=== PATIENT | female | born 1965 ===

== ENCOUNTER 2021-01-05 09:02 | Outpatient (REF) | payer OTHER, SELFPAY ==
[2021-01-05 11:22] LABS: MANUAL DIFF FLAG NO
[2021-01-05 11:35] LABS: Basophils Percent Auto 0.5 % (0-2); Eosinophils Absolute Auto 0.1 X10*3/uL (0.0-0.4); Eosinophils Percent Auto 1.5 % (0-4); Hematocrit 36.6 % (37-47); Hemoglobin 11.6 g/dl (12.0-16.0); Imm Gran Abs Auto 0.01 X10*3/uL (0.00-0.03); Imm Gran Pct Auto 0.2 % (0.0-0.4); Lymphocytes Absolute Auto 3.1 X10*3/uL (1.2-4.9); Lymphocytes Percent Auto 48.3 % (20-40); Mean Corpuscular HGB Conc 31.7 g/dl (31.0-35.0); Mean Corpuscular Hemoglobin 26.6 pg (27.0-33.0); Mean Corpuscular Volume 83.9 fL (80-98); Mean Platelet Volume 12.1 fL (9.4-12.3); Monocytes Absolute Auto 0.5 X10*3/uL (0.1-1.2); Monocytes Percent Auto 7.7 % (2-11); Neutrophils Absolute Auto 2.7 X10*3/uL (2.0-8.3); Neutrophils Percent Auto 41.8 % (45-73); Platelet Count 346 X10*3/uL (160-400); Red Blood Count 4.36 X10*6/uL (4.20-5.50); Red Cell Distribution Width 13.8 % (11.0-16.0); White Blood Count 6.5 X10*3/uL (4.8-10.8)
[2021-01-05 11:42] LABS: Estimated Average Glucose 108 mg/dL; Hemoglobin A1c % 5.4 %
[2021-01-05 11:51] LABS: Creatinine Urine 52.56 mg/dL
[2021-01-05 12:10] LABS: Alanine Aminotransferase 13 U/L (0-31); Albumin Level 4.4 g/dL (3.5-5.0); Alkaline Phosphatase 77 U/L (39-117); Anion Gap 11 (12-20); Aspartate Amino Transferase 17 U/L (5-31); Bilirubin Total 0.3 mg/dL (0.0-1.0); Blood Urea Nitrogen 14 mg/dL (9-16); Calcium 9.2 mg/dL (8.4-10.2); Carbon Dioxide 23 mmol/L (22-29); Chloride 108 mmol/L (96-108); Estimated Glomerular Filt Rate > 60; Glucose Random 104 mg/dL (60-115); Potassium 4.1 mmol/L (3.3-5.1); Sodium 138 mmol/L (135-145); Total Protein 7.7 g/dL (6.5-8.0)
[2021-01-06 16:32] LABS: LDL Cholesterol Direct 129 mg/dL (<100)
== END 2021-01-05 09:03 | disposition home or self-care (01) ==
LOC: HO.HMGCLDS 09:02
PROVIDERS: PCP Internal Medicine; Visit Provider Internal Medicine
DX: E11.9 Type 2 diabetes mellitus without complications (principal); I10 Essential (primary) hypertension
CPT/HCPCS: 36415; 80053; 82043; 83036; 83721; 85025

== ENCOUNTER 2021-01-16 08:28 | Outpatient (REF) | payer OTHER, SELFPAY ==
[2021-01-18 23:32] LABS: TS Negative Control Passed; TS Panel A 0; TS Panel B 0; TS Positive Control Passed; TSpotTB Negative (SeeBelow)
== END 2021-01-16 08:29 | disposition home or self-care (01) ==
LOC: HO.HMGCLDS 08:28
PROVIDERS: PCP Internal Medicine; Visit Provider Internal Medicine
DX: Z11.1 Encounter for screening for respiratory tuberculosis (principal)
CPT/HCPCS: 36415; 86481

== ENCOUNTER 2021-06-07 11:31 | Outpatient (REF) | payer OTHER, SELFPAY ==
[2021-06-07 13:38] LABS: Hematocrit 37.7 % (37.0-47.0); Hemoglobin 11.8 g/dl (12.0-16.0); Mean Corpuscular HGB Conc 31.3 g/dl (31.0-35.0); Mean Corpuscular Hemoglobin 26.3 pg (27.0-33.0); Mean Corpuscular Volume 84.2 fL (80.0-98.0); Mean Platelet Volume 13.1 fL (9.4-12.3); Platelet Count 260 X10*3/uL (160-400); Red Blood Count 4.48 X10*6/uL (4.20-5.50); Red Cell Distribution Width 14.7 % (11.0-16.0); White Blood Count 6.5 X10*3/uL (4.8-10.8)
== END 2021-06-07 11:32 | disposition home or self-care (01) ==
LOC: HO.LAB 11:31
PROVIDERS: PCP Internal Medicine; Referring Provider Internal Medicine; Visit Provider Internal Medicine Cardiovascular Disease
DX: R06.02 Shortness of breath (principal); R07.9 Chest pain, unspecified; Z79.899 Other long term (current) drug therapy
CPT/HCPCS: 36415; 85027; 93005

== ENCOUNTER → 2021-08-09 09:36 | Outpatient (REF) | payer OTHER, SELFPAY ==
--- NOTE | 2021-08-09 09:44 | CA_ITS ---
Transthoracic Echocardiogram Patient (Last, First, Middle): Chrissy Abbott, Gender: Female Date of : 1965 Age: 55 Procedure Date: 08/09/2021 Procedure Type: Transthoracic Echocardiogram Location: OP Height: 157.48 cm Weight: 64.86 kg BSA: 1.66 m2 Heart Rate: bpm BP: 132 / 68 mmHg Program Writer: TANIA Referring MD: Carlos Lazaro MD Cold Working Inspector: Ubaldo Russell MD Symptoms: R06.02 SOB Study Quality: Good ECG Rhythm: Sinus Conclusions: - Essentially normal study Findings Left Ventricle Normal left ventricular size, thickness, and systolic function. The visually estimated ejection fraction is between 60-65%. Spectral Doppler is indicative of a normal filling pattern. Peak GLS is - 17.5%. Right Ventricle Normal right ventricular cavity size and systolic function. Atria Both atria are normal in size. Interatrial shunt cannot be excluded. Aortic Valve The aortic valve structure and function is likely normal. There is no aortic valve stenosis. There is no aortic valve regurgitation. Mitral Valve Normal mitral valve structure and function. There is trace mitral valve regurgitation. There is no mitral valve stenosis. Pulmonic Valve The pulmonic valve was not well visualized. Tricuspid Valve Likely normal tricuspid valve structure and function. There is trace tricuspid valve regurgitation. The right ventricular systolic pressure is normal. The right ventricular systolic pressure is 18 mmHg. Normal right atrial pressure. There is no evidence of pulmonary hypertension. Great Vessels All visible segments of the aorta are normal in size. The pulmonary artery was not well visualized. Venous The inferior vena cava is normal in size and collapses greater than 50% with inspiration. Pericardium/Pleural There is no evidence of pericardial effusion. Prior Study Comparison No prior study available for comparison. Measurements 2D Linear Measurements IVSd: 1.19 0.6-0.9/0.6-1.0 cm LVIDd: 3.84 3.9-5.3/4.2-5.9 cm LVIDd Index: 2.31 2.4-3.2/2.2-3.1 cm/m2 LVIDs: 2.58 2.0-3.6 cm LVPWd: 1.20 0.7-1.1 cm LA Diam: 3.70 2.7-3.8/3.0-4.0 cm LAIDs Index: 2.23 1.5-2.3 cm/m2 LV Mass: 192.59 67-162/88-224 g LV Mass Index: 116.02 43-95/49-115 g/m2 LVOT Diam: 1.90 3.0+(-)1.3 cm 2D Systolic Function EF 4C: 61.80 >55% EF 2C: 61.80 >55% EF BiP: 61.00 >55% Mitral Valve MV Pk E: 0.79 MV PK A: 0.64 MV Decel Time: 190.00 E/A: 1.20 E'Lateral: 8.27 E'Medial: 6.20 E/E' Med: 12.70 E/E' Lat: 9.50 PHT: 56.00 MVA PHT: 3.93 Decel [place]: 4.15 Aortic Valve AoV Pk Elvin: 1.24 AoV Mn Elvin: 0.82 AoV VTI: 0.29 AoV Pk Grad: 6.00 Aov Mn Grad: 3.00 BEATRICE Cont.VTI: 2.10 LVOT LVOT Pk Elvin: 0.90 LVOT Mn Elvin: 0.58 LVOT VTI: 0.21 LVOT Pk Grad: 3.00 LVOT Mn Grad: 2.00 LVOT Diam: 1.90 LVOT Area: 2.84 Diastolic Function MV Pk E: 0.79 MV Pk A: 0.64 E/A: 1.20 E'Medial: 6.20 E/E' Med: 12.70 E' Laterial: 8.27 E/E' Lat: 9.50 Right Ventricle TAPSE (mm): 22.40 TVS' Elvin: 9.14 Tricuspid Valve TR Pk Elvin: 1.94 TR Pk Grad: 15.00 RA Press: 3.00 RVSP: 18.00 Great Vessels Aorta Sinus of Valsalva: 2.92 2.0-3.[address] [place]: 2.05 1.7-3.4 cm Ao Asc: 3.00 2.1-3.4 cm Ao Arch: 3.20 Updated in Other Vendor System with Status of Final Ubaldo Russell MD electronically signed on 08/10/2021 3:56:38 PM with status of Final
--- NOTE | 2021-08-09 09:45 | CA_ITS ---
Acquisition Time: 2021-08-09 10:29:36 Total Exercise Time: 00:05:30 Test Indications: CP, SOB Medications: SEE CHART Protocol: SANDRO Max HR: 157 BPM 94% of Pred: 167 BPM Max BP: 230/086 mmHG Max Work Load: 7.0 METS Exercise strress test with exercise 5 min 30 sec of Sandro protocol, achieving 94% MPHR, 7 METs, without anginal symptoms, without arrythmia, with BP 164/84 at baseline and gume to 230/86 with exercise, without EKG changes meeting criteria for ischemia. Starting at 5 min recovery there is slight downsloping of ST inferiorly and V3-V6 that improves by 8 min recovery. In recovery her BP returned to baseline. She did take her losartan/ HCTZ last evening. Test reviewed with Dr Russell. Referred By: Carlos Lazaro Overread By: ELVI ARCE
== END ==
LOC: HO.CARD 09:36
PROVIDERS: PCP Internal Medicine; Visit Provider Internal Medicine Cardiovascular Disease
DX: R07.9 Chest pain, unspecified (principal); R06.02 Shortness of breath
CPT/HCPCS: 93017; 93306; 93356

== ENCOUNTER → 2021-08-23 14:11 | Outpatient (BNVA) | payer OTHER, SELFPAY | PROVIDERS: PCP Internal Medicine; Referring Provider Internal Medicine; Visit Provider Internal Medicine Cardiovascular Disease | DX: I10 Essential (primary) hypertension (principal) ==

== ENCOUNTER 2021-10-26 09:30 | Outpatient (REF) | payer OTHER, SELFPAY ==
[2021-10-26 11:41] LABS: Alanine Aminotransferase 49 U/L (0-31); Albumin Level 4.6 g/dL (3.5-5.0); Alkaline Phosphatase 76 U/L (39-117); Anion Gap 12 (12-20); Aspartate Amino Transferase 30 U/L (5-31); Bilirubin Total 0.2 mg/dL (0.0-1.0); Blood Urea Nitrogen 19 mg/dL (9-16); Calcium 8.8 mg/dL (8.4-10.2); Carbon Dioxide 26 mmol/L (22-29); Chloride 103 mmol/L (96-108); Estimated Average Glucose 131 mg/dL; Estimated Glomerular Filt Rate > 60; Glucose Random 159 mg/dL (60-115); Hemoglobin A1c % 6.2 %; Potassium 3.6 mmol/L (3.3-5.1); Sodium 137 mmol/L (135-145); Total Protein 8.1 g/dL (6.5-8.0)
[2021-10-28 05:42] LABS: LDL Cholesterol Direct 131 mg/dL (<100)
== END 2021-10-26 09:31 | disposition home or self-care (01) ==
LOC: HO.HMGCLDS 09:30
PROVIDERS: Visit Provider Internal Medicine
DX: E11.9 Type 2 diabetes mellitus without complications (principal); I10 Essential (primary) hypertension
CPT/HCPCS: 36415; 80053; 83036; 83721

== ENCOUNTER 2022-05-07 12:17 | Outpatient (REF) | payer OTHER, SELFPAY ==
[2022-05-07 14:14] LABS: Alanine Aminotransferase 19 U/L (0-31); Albumin Level 4.4 g/dL (3.5-5.0); Alkaline Phosphatase 80 U/L (39-117); Anion Gap 14 (12-20); Aspartate Amino Transferase 19 U/L (5-31); Bilirubin Total 0.4 mg/dL (0.0-1.0); Blood Urea Nitrogen 11 mg/dL (9-16); Calcium 9.2 mg/dL (8.4-10.2); Carbon Dioxide 27 mmol/L (22-29); Chloride 104 mmol/L (96-108); Cholesterol 170 mg/dL; Estimated Average Glucose 151 mg/dL; Estimated Glomerular Filt Rate > 60; Glucose Fasting 119 mg/dL (60-99); HDL Cholesterol 43 mg/dL; Hemoglobin A1c % 6.9 %; LDL Cholesterol Calculated 119 mg/dl; Potassium 3.9 mmol/L (3.3-5.1); Sodium 141 mmol/L (135-145); Total Protein 7.6 g/dL (6.5-8.0); Triglycerides 44 mg/dL
== END 2022-05-07 12:18 | disposition home or self-care (01) ==
LOC: HO.HMGCLDS 12:17
PROVIDERS: PCP Internal Medicine; Visit Provider Internal Medicine
DX: I10 Essential (primary) hypertension (principal); E11.9 Type 2 diabetes mellitus without complications
CPT/HCPCS: 36415; 80053; 80061; 83036

== ENCOUNTER 2022-08-09 08:38 | Outpatient (REF) | payer OTHER, SELFPAY ==
--- NOTE | ~2022-08-09 | XR_ITS ---
EXAMINATION: XR FOOT, LEFT CLINICAL INFORMATION: Contusion left foot. COMPARISON: None available. TECHNIQUE: AP, lateral, and oblique views of the left foot. FINDINGS: There is small retrocalcaneal and a tiny calcaneal enthesophyte. The ankle mortise and subtalar joints are normal. No acute fracture, dislocation subluxation seen. The soft tissues are normal. XR/XR foot LT min 3V IMPRESSION: 1. No acute fracture or dislocation. 2. Small retrocalcaneal and a tiny calcaneal heel enthesophyte.
== END 2022-08-09 08:39 | disposition home or self-care (01) ==
LOC: HO.HMGCX 08:38
PROVIDERS: PCP Internal Medicine; Visit Provider Internal Medicine
DX: S90.32XA Contusion of left foot, initial encounter (principal)
CPT/HCPCS: 73630

== ENCOUNTER 2022-11-01 14:33 | Outpatient (AMB) | payer OTHER, SELFPAY ==
--- NOTE | 2022-11-01 14:39 | MHC.PC.OV ---
Vital Signs 11/01/22 14:40 Height 5 ft 2 in Weight 144 lb BMI 26.3 BP 152/92 H Blood Pressure Location Rt brachial Position Sitting Pulse 60 Pulse Source Pulse Oximeter Pulse Oximetry (%) 99 Oxygen Delivery Method Room Air Intake Visit Reasons: PE Allergies codeine Allergy (Unknown, Verified 11/01/22 14:45) hives Codeine Sulfate Allergy (Unknown, Uncoded 11/01/22 14:45) hives, flu vaccine Adverse Reaction (Uncoded 11/01/22 14:45) upset stomach Medication List - Last Reconciled 11/01/22 by Andreea Jackson MD losartan-hydrochlorothiazide 50-12.5 mg 1 tab PO DAILY 90 days Tobacco use date assessed: 11/01/22 Dental Screening Dental Screen Date: 11/01/22 Did you have a dental visit in the last 12 months?: Yes Did you have a dental problem in the last 6 months where you did not have access to dental care?: No Was dental information given to patient?: Patient has dentist HPI PE HPI Details Physical exam appointment Patient is 56-year-old female blood pressure is still elevated patient is taking 1 and half tablet of losartan hydrochlorothiazide 50-12.5 mg I am changing the dose to 1 tablet b.i.d.. Patient will continue to monitor her blood pressure at home and give me a call in 7 days with readings Due for mammogram Due for Pap smear Due for colonoscopy Patient is diet controlled diabetic last hemoglobin A1c was 6.9 in May Due for labs today She has developed tenia corporis I have sent ketoconazole cream that she is to apply on right foot at bedtime and then wear cotton sock. [facility] Surgical History No pertinent past surgical history Family History Mother Hypertension Father No problems noted. Social History Housing: House Alcohol intake: never Patient Tobacco Use Status: Never used Tobacco e-Cigarette/Vaping Use: Never Used Second Hand Smoke Exposure: No Current occupational status: employed Cognitive needs: No Hearing needs: No Vision needs: Yes Questionnaire PHQ-9 Over the last 2 weeks, how often have you been bothered by any of the following problems? 1. Little interest or pleasure in doing things: not at all 2. Feeling down, depressed, or hopeless: not at all 3. Trouble falling or staying asleep, or sleeping too much: not at all 4. Feeling tired or having little energy: not at all 5. Poor appetite or overeating: not at all 6. Feeling bad about yourself - or that you are a failure or have let yourself or your family down: not at all 7. Trouble concentrating on things, such as reading the newspaper or watching television: not at all 8. Moving or speaking so slowly that other people could have noticed. Or the opposite - being so fidgety or restless that you have been moving around a lot more than usual: not at all 9. Thoughts that you would be better off or of hurting yourself in some way: not at all Total score: 0 Depression Screening Interpretation: Negative [id number] - PHQ-9 Billing: Yes Source: Developed by Drs. Silvio Schneider, Carmel Delgadillo, Andrea Neal and colleagues, with an educational lynda from [employer]. Thrive Questionnaire Date Thrive assessed: 11/01/22 I am a: Patient What is your living situation today?: I have a steady place to live Within the past 12 months, did the food you bought not last and you didn't have the money to get more?: Never true Within the past 12 months, did you worry whether your food would run out before you got money to buy more?: Never true Do you have trouble paying for medicines?: No Do you have trouble getting transportation to medical appointments?: No Do you have trouble paying your heating and electricity bill?: No Do you have trouble taking care of your child, family member or friend?: No Do you have trouble with day-to-day activities such as bathing, preparing meals, shopping, managing finances, etc.?: No Are you currently unemployed and looking for a job?: No Are you interested in more education?: No NORBERTO-7 AMB Questionnaire NORBERTO-7 Date NORBERTO - 7 assessed: 11/01/22 Feeling nervous, anxious, or on edge: 0 = Not at all Not being able to stop or control worryin = Not at all Worrying too much about different things: 0 = Not at all Trouble relaxin = Not at all Being so restless that it is hard to sit still: 0 = Not at all Becoming easily annoyed or irritable: 0 = Not at all Feeling afraid as if something awful might happen: 0 = Not at all Total NORBERTO-7 score (0-4 normal; 5-9 mild; 10-14 moderate; 15-21 severe): 0 Source: Developed by Drs. Silvio Schneider, Carmel Delgadillo, Andrea Neal and colleagues, with an educational lynda from [employer]. Review of Systems Const Denies chills, Denies fever(s) and Denies headache(s) Eyes Denies blurry vision ENT Denies headache(s), Denies nasal discharge, Denies nasal obstruction, Denies odynophagia and Denies sinus pain Card Denies chest pain at rest and Denies chest pain with activity Resp Denies cough and Denies hemoptysis GI Denies diarrhea, Denies odynophagia, Denies vomiting and Denies hematemesis Reports as per HPI Musc Denies abnormal gait Skin/Breast Reports as per HPI Neuro Denies Neuro-related abnormal movements, Denies Abnormal speech present, Denies abnormal gait, Denies headache(s) and Denies Sensory deficit (Neuro) Psych Denies mood swings and Denies paranoia Endo Reports as per HPI Heber/Lymph Reports as per HPI Aller/Immun Reports as per HPI Physical exam (Primary Care) Vital Signs: Last Vital Signs Pulse 60 11/01/22 14:40 BP 152/92 H 11/01/22 14:40 Pulse Ox 99 11/01/22 14:40 Oxygen Delivery Method Room Air 11/01/22 14:40 BMI result Body Mass Index 26.3 Tobacco/Smoking Status: Tobacco use Status Tobacco use date assessed 11/01/22 11/01/22 14:45 Patient Tobacco Use Status Never used Tobacco 11/01/22 14:40 e-Cigarette/Vaping Use Never Used 11/01/22 14:40 PHQ-9: PHQ-9 Score PHQ-9: Total score 0 11/01/22 15:10 Depression Screening Interpretation: Negative Thrive Assessment: Date of Thrive Assessment Date Thrive assessed 11/01/22 11/01/22 14:45 Const General: cooperative, comfortable and no acute distress Orientation/consciousness: patient oriented x3 HENMT Head: Yes normocephalic and Yes atraumatic Eyes General: appearance normal, both eyes and all related structures Pupils: Equal, round and reactive pupils present EOM: EOMs intact bilaterally Neck Neck: Yes supple and No lymphadenopathy Thyroid: Thyroid normal Lymphatic: no lymphadenopathy noted Chest Breast/axilla palpation: normal palpation of the breasts Resp Effort & Inspection: normal respiratory effort and able to speak in complete sentences Auscultation: clear to auscultation bilaterally Cardio Heart sounds: S1 normal heart sound present and S2 normal heart sound present GI Palpation (GI): Soft to palpation and nontender Auscultation: normal bowel sounds General: Yes no CVA tenderness Back/Spine/Pelvis Back: no CVA tenderness Skin General skin exam: elasticity normal and turgor normal Neuro General: patient oriented x3 and gait normal Cranial nerves: Yes Equal, round and reactive pupils present Speech: No Abnormal speech present Sensory Exam: No Sensory deficit (Neuro) Coordination: tandem gait normal and Romberg test negative Extrem General: Yes normal exam except as noted and No edema Assessment and Plan Assessment & Plan (1) Encounter for general adult medical examination with abnormal findings: Code(s): Z00.01 - Encounter for general adult medical examination with abnormal findings (2) Uncontrolled hypertension: Code(s): I10 - Essential (primary) hypertension (3) Colon cancer screening: Code(s): Z12.11 - Encounter for screening for malignant neoplasm of colon (4) Tinea pedis of right foot: Code(s): B35.3 - Tinea pedis Plan Physical exam appointment Patient is 56-year-old female blood pressure is still elevated patient is taking 1 and half tablet of losartan hydrochlorothiazide 50-12.5 mg I am changing the dose to 1 tablet b.i.d.. Patient will continue to monitor her blood pressure at home and give me a call in 7 days with readings Due for mammogram Due for Pap smear Due for colonoscopy Patient is diet controlled diabetic last hemoglobin A1c was 6.9 in May Due for labs today She has developed tenia pedis I have sent ketoconazole cream that she is to apply on right foot at bedtime and then wear cotton sock. Orders: Orders Hemoglobin A1c Today I10 - Essential (primary) hypertension, Z00.01 - Encounter for general adult medical examination with abnormal findings Complete Blood Count Auto Diff Today I10 - Essential (primary) hypertension, Z00.01 - Encounter for general adult medical examination with abnormal findings Comprehensive [place]. Panel Fast Today I10 - Essential (primary) hypertension, Z00.01 - Encounter for general adult medical examination with abnormal findings Lipid Panel Today I10 - Essential (primary) hypertension, Z00.01 - Encounter for general adult medical examination with abnormal findings MM tomosynthesis screening BI Today Z12.31 - Encounter for screening mammogram for malignant neoplasm of breast Referrals [facility] Referral Z01.419 - Encounter for gynecological examination (general) (routine) without abnormal findings Gastroenterology Referral Z12.11 - Encounter for screening for malignant neoplasm of colon Medications: New ketoconazole 2% 1 appl topical DAILY 60 grams 1RF Foot rash Coding Level of Care Code Est Pt Prev Care 40-64y(29817) Diagnoses Encounter for general adult medical examination with abnormal findings Z00.01 Uncontrolled hypertension I10 Colon cancer screening Z12.11 Tinea pedis of right foot B35.3
[2022-11-01 14:40] VITALS: BP 152/92; PULSE 60; O2SAT 99; BMI 26.3
== END 2022-11-01 15:46 | disposition home or self-care (01) ==
PROVIDERS: Visit Provider Internal Medicine
DX: Z00.01 Encounter for general adult medical examination with abnormal findings (principal); I10 Essential (primary) hypertension; Z12.11 Encounter for screening for malignant neoplasm of colon; B35.3 Tinea pedis
CPT/HCPCS: 99396

== ENCOUNTER 2022-11-01 15:15 | Outpatient (REF) | payer OTHER, SELFPAY ==
[2022-11-01 16:09] LABS: MANUAL DIFF FLAG NO
[2022-11-01 16:29] LABS: Basophils Percent Auto 0.6 % (0-2); Eosinophils Absolute Auto 0.1 X10*3/uL (0.0-0.4); Eosinophils Percent Auto 1.3 % (0-4); Hematocrit 39.6 % (37.0-47.0); Hemoglobin 12.9 g/dl (12.0-16.0); Imm Gran Abs Auto 0.01 X10*3/uL (0.00-0.03); Imm Gran Pct Auto 0.2 % (0.0-0.4); Lymphocytes Percent Auto 47.7 % (20-40); Mean Corpuscular HGB Conc 32.6 g/dl (31.0-35.0); Mean Corpuscular Hemoglobin 26.9 pg (27.0-33.0); Mean Corpuscular Volume 82.5 fL (80.0-98.0); Mean Platelet Volume 11.9 fL (9.4-12.3); Monocytes Absolute Auto 0.5 X10*3/uL (0.1-1.2); Monocytes Percent Auto 7.4 % (2-11); Neutrophils Absolute Auto 2.7 x10*3/uL (2.0-8.3); Neutrophils Percent Auto 42.8 % (45-73); Platelet Count 294 X10*3/uL (160-400); Red Cell Distribution Width 13.4 % (11.0-16.0); White Blood Count 6.2 X10*3/uL (4.8-10.8)
[2022-11-01 16:56] LABS: Estimated Average Glucose 160 mg/dL; Hemoglobin A1c % 7.2 %
[2022-11-01 17:34] LABS: Alanine Aminotransferase 30 U/L (0-31); Albumin Level 4.5 g/dL (3.5-5.0); Alkaline Phosphatase 76 U/L (39-117); Anion Gap 15 (12-20); Aspartate Amino Transferase 20 U/L (5-31); Bilirubin Total 0.3 mg/dL (0.0-1.0); Blood Urea Nitrogen 14 mg/dL (9-16); Calcium 9.3 mg/dL (8.4-10.2); Carbon Dioxide 24 mmol/L (22-29); Chloride 105 mmol/L (96-108); Cholesterol 204 mg/dL; Estimated Glomerular Filt Rate > 60; Glucose Fasting 141 mg/dL (60-99); HDL Cholesterol 49 mg/dL; LDL Cholesterol Calculated 146 mg/dl; Potassium 3.6 mmol/L (3.3-5.1); Sodium 140 mmol/L (135-145); Total Protein 8.2 g/dL (6.5-8.0); Triglycerides 48 mg/dL
== END 2022-11-01 15:16 | disposition home or self-care (01) ==
LOC: HO.HMGCLDS 15:15
PROVIDERS: PCP Internal Medicine; Visit Provider Internal Medicine
DX: Z00.01 Encounter for general adult medical examination with abnormal findings (principal); I10 Essential (primary) hypertension
CPT/HCPCS: 36415; 80053; 80061; 83036; 85025

== ENCOUNTER 2022-11-19 08:45 | Outpatient (AMB) | payer OTHER, SELFPAY ==
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
[2022-11-19 09:03] VITALS: BP 142/88; PULSE 55; O2SAT 97; BMI 26.2
== END 2022-11-19 11:03 | disposition home or self-care (01) ==
PROVIDERS: PCP Internal Medicine; Visit Provider Internal Medicine
DX: S13.4XXA Sprain of ligaments of cervical spine, initial encounter (principal); S06.0XAA Concussion with loss of consciousness status unknown, initial encounter; R41.89 Other symptoms and signs involving cognitive functions and awareness; Z04.3 Encounter for examination and observation following other accident; V89.2XXA Person injured in unspecified motor-vehicle accident, traffic, initial encounter
CPT/HCPCS: 99214

== ENCOUNTER 2022-12-04 07:43 | Outpatient (AMB) | payer OTHER, SELFPAY ==
--- NOTE | 2022-12-04 07:53 | MHC.OFFVIS ---
Intake Vital Signs 12/04/22 07:55 Height 5 ft 2 in Weight 147 lb BMI 26.9 BP 148/73 H Blood Pressure Location Lt brachial Position Sitting Pulse 69 Intake Visit Reasons: Colonoscopy Screening Intake Note: Patient new consult for 1st pre Colonoscopy screening. Patient cc: constipation on and off, denies any other GI issues. 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 Accompanied by: Self / Same As Patient Allergies codeine Allergy (Unknown, Verified 12/04/22 07:52) hives Codeine Sulfate Allergy (Unknown, Uncoded 11/01/22 14:45) hives, flu vaccine Adverse Reaction (Uncoded 11/01/22 14:45) upset stomach Medication List - Last Reconciled 12/04/22 by Cassandar Dueñas PA-C ibuprofen 600 mg PO Q8H PRN ketoconazole 2% 1 appl topical DAILY losartan-hydrochlorothiazide 50-12.5 mg 1 tab PO DAILY 90 days HPI HPI Comments History of Present Illness Details A 57-year-old female referred for index screening colonoscopy-she has intermittent constipation however has able to manage- hemorrhoids for years- no issues appetite is good- No respiratory or cardiac issues 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 Social History Housing: House Alcohol intake: never Patient Tobacco Use Status: Never used Tobacco e-Cigarette/Vaping Use: Never Used Second Hand Smoke Exposure: No Current occupational status: employed Cognitive needs: No Hearing needs: No Vision needs: Yes Review of Systems Const All systems reviewed & are unremarkable except as noted in HPI and below Card Denies chest pain and Denies dyspnea Resp Denies dyspnea GI Denies abdominal pain, Denies change in bowel habits, Denies nausea and Denies vomiting Psych Denies anxiety Physical Exam Vital Signs: Last Vital Signs Pulse 69 12/04/22 07:55 BP 148/73 H 12/04/22 07:55 BMI result Body Mass Index 26.9 Const General: cooperative, healthy appearing, comfortable, no acute distress and well groomed Orientation/consciousness: patient oriented x3 Limitations: no limitations Eyes Sclerae: sclerae normal Resp Effort & Inspection: normal respiratory effort and able to speak in complete sentences Auscultation: clear to auscultation bilaterally, no rales, no rhonchi and no wheezes Cardio Rate: regular rate Rhythm: regular rhythm Heart sounds: S1 normal heart sound present and S2 normal heart sound present GI Palpation (GI): Soft to palpation and nontender Auscultation: normal bowel sounds Skin General skin exam: no rashes or lesions noted Neuro General: patient oriented x3 Extrem General: Yes full ROM Psych Appearance: grossly normal and well kempt Mental Status: mental status grossly normal Speech and movement: Normal speech and movement present and Clear speech present Affect: normal affect Attitude: cooperative Thought process: Normal thought process present Thought content: Normal thought content present Insight: Good insight present (Psych) Judgement: Good judgement present (Psych) Assessment & Plan Assessment & Plan (1) Colon cancer screening: Comment: No GI complaints, no family history GI cancer Code(s): Z12.11 - Encounter for screening for malignant neoplasm of colon Plan: index screen Plan Index screen- MG pre- FEMALE pls- TY Orders: Orders Colonoscopy - GI Use Only Today Z12.11 - Encounter for screening for malignant neoplasm of colon Medications: New bisacodyl (Dulcolax (bisacodyl)) Take 4 tablets by mouth at 12:00pm the day before your procedure. 20 mg (4 x 5 mg) PO ONCE 4 tabs 0RF colonoscopy prep 1 day Z12.11 - Encounter for screening for malignant neoplasm of colon polyethylene glycol 3350 (Miralax) Take as directed by mouth the day before your procedure. 238 grams PO ONCE PRN 238 grams 0RF laxative effect 1 day Patient Instructions: A very pleasant 57 y/o female refrred for index screening- Discussed procedure, rare risks, need for escorted due to anesthesia Index screening colonoscopy-MiraLax Gatorade split prep Call with any questions or concerns Coding Level of Care Code New Pt Level 3 (71351) Diagnoses Colon cancer screening Z12.11 Time Spent (min) 30
[2022-12-04 07:55] VITALS: BP 148/73; PULSE 69; BMI 26.9
== END 2022-12-04 09:16 | disposition home or self-care (01) ==
PROVIDERS: PCP Internal Medicine; Visit Provider Physician Assistant
DX: Z12.11 Encounter for screening for malignant neoplasm of colon (principal); Z01.818 Encounter for other preprocedural examination
CPT/HCPCS: 99203

== ENCOUNTER → 2022-12-04 07:43 | Outpatient (BNVA) | payer OTHER, SELFPAY | PROVIDERS: PCP Internal Medicine; Visit Provider Physician Assistant ==

== ENCOUNTER 2022-12-18 08:06 | Outpatient (AMB) | payer OTHER, SELFPAY ==
[2022-12-18 08:09] VITALS: BP 140/88; PULSE 76; O2SAT 99; BMI 26.3
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
== END 2022-12-18 08:59 | disposition home or self-care (01) ==
PROVIDERS: PCP Internal Medicine; Visit Provider Internal Medicine
DX: S13.4XXD Sprain of ligaments of cervical spine, subsequent encounter (principal); S06.0X0D Concussion without loss of consciousness, subsequent encounter; R41.89 Other symptoms and signs involving cognitive functions and awareness; V89.2XXD Person injured in unspecified motor-vehicle accident, traffic, subsequent encounter; Z04.3 Encounter for examination and observation following other accident
CPT/HCPCS: 99214

== ENCOUNTER 2022-12-20 07:47 | Outpatient (REF) | payer OTHER, SELFPAY | END 2022-12-20 07:48 | disposition home or self-care (01) | LOC: HO.MAMMO 07:47 | PROVIDERS: PCP Internal Medicine; Visit Provider Internal Medicine | DX: Z12.31 Encounter for screening mammogram for malignant neoplasm of breast (principal) | CPT/HCPCS: 77063; 77067 ==

== ENCOUNTER → 2022-12-20 08:15 | Outpatient (BNV) | payer OTHER, SELFPAY | PROVIDERS: PCP Internal Medicine; Visit Provider Radiology Diagnostic Radiology | DX: Z12.31 Encounter for screening mammogram for malignant neoplasm of breast (principal) | CPT/HCPCS: 77063; 77067 ==

== ENCOUNTER 2023-01-14 08:00 | Outpatient (RCR) | payer OTHER, SELFPAY ==
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
== END 2023-01-16 09:17 | disposition home or self-care (01) ==
LOC: HO.PTCHIC 08:00
PROVIDERS: PCP Internal Medicine; Visit Provider Internal Medicine
DX: S13.4XXA Sprain of ligaments of cervical spine, initial encounter (principal); M54.50 Low back pain, unspecified
CPT/HCPCS: 97110; 97161

== ENCOUNTER 2023-01-24 14:32 | Outpatient (AMB) | payer OTHER, SELFPAY ==
[2023-01-24 14:46] VITALS: BP 126/70; PULSE 85; O2SAT 98; BMI 26.8
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
== END 2023-01-24 16:06 | disposition home or self-care (01) ==
PROVIDERS: PCP Internal Medicine; Visit Provider Internal Medicine
DX: M54.2 Cervicalgia (principal); V89.2XXA Person injured in unspecified motor-vehicle accident, traffic, initial encounter
CPT/HCPCS: 99213

== ENCOUNTER 2023-05-29 06:57 | Day surgery (SDC) | payer OTHER, SELFPAY ==
[2023-05-27 13:15] VITALS: BMI 26.9
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
--- NOTE | 2023-05-29 08:25 | MHC.SHP ---
Pre-Procedural Eval Section A - 24 Hr Update-Section A only Date of Service: 05/29/23 Section B - Complete if H&P > 30 days Chief Complaint: screening Relevant Family History (Specify if Yes): No Relevant Social History: None Present Medications: see Short Stay Collaborative assessment Medical History: No relevant PMH History of Previous Operations: No relevant previous surgery Allergies: Allergies Allergy/AdvReac Type Severity Reaction Status Date / Time codeine Allergy Intermediate hives Verified 05/27/23 13:10 Influenza Virus Vaccines Allergy Intermediate Gastrointestinal Verified 05/27/23 13:10 Upset ether AdvReac Confusion Verified 05/29/23 08:11 Review of Systems Review of Systems Comment: Ten point ROS negative Exam Exam Comment: Gen appear: No acute distress HEENT: no icterus Chest: No overt resp distress Abd: soft, nontender, nondistended Psych: Stable affect, answering questions appropriately Neuro: A/Ox3 noted to move all extremities spontaneously Ext: no peripheral edema Plan Diagnosis/Plan: Unchanged I have reviewed the history and physical and performed a pertinent physical examination on my patient. No changes have occurred unless specified. Time Spent With Patient Time: Total time managing care of this patient today ____ minutes.
[2023-05-29 08:28] VITALS: BP 136/72; PULSE 61; RESP 16; TEMP 37.2; O2SAT 100
[2023-05-29] MEDS: Lactated Ringers 1,000 ML 100 ML IVCONT (08:36)
--- NOTE | 2023-05-29 09:04 | P.OP_ITS ---
Operative Note Operative Note Date of Service: 05/29/23 Narrative: Procedure: Colonoscopy Indication: Screening Endoscopist: Whitney Freed MD Anesthesia Provider: Dr Jessika Quigley Anesthesia type: MAC Instrument: Olympus [id number] Consent: Indication, risks vs benefits, and alternatives were discussed with the patient who gave written informed consent to proceed. EKG, pulse, pulse oximetry and blood pressure were monitored throughout the procedure. Please see anesthesia flowsheet. Procedure: The patient was brought to the procedure room and placed in the left lateral decubitus position. IV medications were administered by the anesthesia provider in attendance. A digital rectal exam was performed which was normal. A distal attachment cap was affixed to the tip of the scope and the colonoscope was then inserted through the anus and advanced through the colon to the cecum at 75 cm,and terminal ileum. Appendiceal orifice and ileocecal valve were identified. Mucosa was carefully examined under high definition white light as the instrument was slowly withdrawn in a retrograde panoramic fashion. Retroflexion was performed in rectum. The procedure was not difficult. There were no immediate obvious complications. The quality of the prep was BBPS: 2+3+3 = adequate Withdrawal time 11 minutes. Limitations: No limitations. Findings: Mucosa: Erythema and exudates noted on ileocecal valve. Cold forceps biopsies were taken for histology. Otherwise,normal to cecum and terminal ileum. Protruding lesions: * Small internal hemorrhoids without stigmata of recent bleeding. Impression: 1. Inflammed IC valve (biopsy) 2. Internal hemorrhoids Recommendations: - Suspect non-specific inflammation at ICV - possibly prep related artifact, however will await results of biopsies as above. - Otherwise, repeat colonoscopy for asymptomatic colorectal cancer screening in 10 years
[2023-05-29 09:07] VITALS: BP 84/45; PULSE 58; RESP 16; TEMP 36.4; O2SAT 99
[2023-05-29 09:12] VITALS: BP 90/49
[2023-05-29 09:17] VITALS: BP 110/63; PULSE 49
[2023-05-29 09:22] VITALS: BP 110/60; PULSE 62; RESP 18; O2SAT 100
[2023-05-29 09:37] VITALS: BP 150/86; PULSE 59; RESP 18; TEMP 36.6; O2SAT 100
== END 2023-05-29 10:12 | disposition home or self-care (01) ==
PROVIDERS: PCP Internal Medicine; Visit Provider Internal Medicine
PROC: 0DJD8ZZ Inspection of Lower Intestinal Tract, Via Natural or Artificial Opening Endoscopic (ICD-10-PCS; CPT 45378; principal; 2023-05-29 08:50)
DX: Z12.11 Encounter for screening for malignant neoplasm of colon (principal); K52.89 Other specified noninfective gastroenteritis and colitis; K64.8 Other hemorrhoids; E11.9 Type 2 diabetes mellitus without complications; I10 Essential (primary) hypertension
CPT/HCPCS: 45380; 88305; J2704

== ENCOUNTER → 2023-05-29 06:57 | Outpatient (BNV) | payer OTHER, SELFPAY | PROVIDERS: PCP Internal Medicine; Visit Provider Internal Medicine | DX: Z12.11 Encounter for screening for malignant neoplasm of colon (principal); K63.89 Other specified diseases of intestine; K64.8 Other hemorrhoids | CPT/HCPCS: 45380 ==

== ENCOUNTER 2023-07-11 14:21 | Outpatient (AMB) | payer OTHER, SELFPAY ==
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
[2023-07-11 14:33] VITALS: BP 148/96; PULSE 77; O2SAT 96; BMI 25.8
== END 2023-07-11 14:49 | disposition home or self-care (01) ==
PROVIDERS: PCP Internal Medicine; Visit Provider Internal Medicine
DX: I10 Essential (primary) hypertension (principal); E11.9 Type 2 diabetes mellitus without complications
CPT/HCPCS: 99213

== ENCOUNTER 2023-07-11 14:53 | Outpatient (REF) | payer OTHER, SELFPAY ==
[2023-07-11 16:16] LABS: MANUAL DIFF FLAG NO
[2023-07-11 16:28] LABS: Estimated Average Glucose 157 mg/dL; Hemoglobin A1c % 7.1 % (<6.0)
[2023-07-11 16:30] LABS: Basophils Percent Auto 0.4 % (0-2); Eosinophils Absolute Auto 0.1 X10*3/uL (0.0-0.4); Eosinophils Percent Auto 0.9 % (0-4); Hemoglobin 12.3 g/dl (12.0-16.0); Imm Gran Abs Auto 0.01 X10*3/uL (0.00-0.03); Imm Gran Pct Auto 0.2 % (0.0-0.4); Lymphocytes Absolute Auto 2.9 X10*3/uL (1.2-4.9); Lymphocytes Percent Auto 51.8 % (20-40); Mean Corpuscular HGB Conc 33.2 g/dl (31.0-35.0); Mean Corpuscular Volume 81.1 fL (80.0-98.0); Mean Platelet Volume 12.3 fL (9.4-12.3); Monocytes Absolute Auto 0.3 X10*3/uL (0.1-1.2); Neutrophils Absolute Auto 2.3 x10*3/uL (2.0-8.3); Neutrophils Percent Auto 40.7 % (45-73); Platelet Count 298 X10*3/uL (160-400); Red Blood Count 4.56 X10*6/uL (4.20-5.50); Red Cell Distribution Width 13.9 % (11.0-16.0); White Blood Count 5.5 X10*3/uL (4.8-10.8)
[2023-07-11 16:36] LABS: Creatinine Urine 136.42 mg/dL; Microalbum/Creatinine Ratio Ur 10.2 ug/mg cr (<30)
[2023-07-11 16:55] LABS: Alanine Aminotransferase 29 U/L (0-31); Albumin Level 4.4 g/dL (3.5-5.0); Alkaline Phosphatase 71 U/L (39-117); Anion Gap 13 (12-20); Aspartate Amino Transferase 20 U/L (5-31); Bilirubin Total 0.3 mg/dL (0.0-1.0); Blood Urea Nitrogen 13 mg/dL (9-16); Calcium 9.3 mg/dL (8.4-10.2); Carbon Dioxide 25 mmol/L (22-29); Chloride 105 mmol/L (96-108); Cholesterol 200 mg/dL (<200); Estimated Glomerular Filt Rate > 60; Glucose Fasting 143 mg/dL (60-99); HDL Cholesterol 41 mg/dL (>40); LDL Cholesterol Calculated 151 mg/dL (<100); Potassium 3.4 mmol/L (3.3-5.1); Sodium 140 mmol/L (135-145); Total Protein 8.2 g/dL (6.5-8.0); Triglycerides 44 mg/dL (<150)
== END 2023-07-11 14:54 | disposition home or self-care (01) ==
LOC: HO.HMGCLDS 14:53
PROVIDERS: PCP Internal Medicine; Visit Provider Internal Medicine
DX: I10 Essential (primary) hypertension (principal); E11.9 Type 2 diabetes mellitus without complications
CPT/HCPCS: 36415; 80053; 80061; 82043; 82570; 83036; 85025

== ENCOUNTER 2024-02-02 09:07 | Outpatient (AMB) | payer OTHER, SELFPAY ==
[2024-02-02 09:15] VITALS: BP 142/90; PULSE 80; TEMP 36.6; O2SAT 100; BMI 25.8
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
== END 2024-02-02 09:54 | disposition home or self-care (01) ==
PROVIDERS: PCP Internal Medicine; Visit Provider Physician Assistant
DX: J06.9 Acute upper respiratory infection, unspecified (principal)

== ENCOUNTER 2024-02-02 09:07 | Outpatient (REF) | payer OTHER, SELFPAY ==
[2024-02-02 14:49] LABS: Influenza A PCR NEGATIVE (Negative); Influenza B PCR NEGATIVE (Negative); Resp Syncy Virus RNA Qual PCR POSITIVE (Negative); SARS COV2 PCR INHOUSE NEGATIVE (Negative)
== END 2024-02-02 09:08 | disposition home or self-care (01) ==
LOC: HO.LAB 09:07
PROVIDERS: PCP Internal Medicine; Visit Provider Physician Assistant
DX: J06.9 Acute upper respiratory infection, unspecified (principal); R05.9 Cough, unspecified; R09.89 Other specified symptoms and signs involving the circulatory and respiratory systems
CPT/HCPCS: 0241U

== ENCOUNTER 2024-02-02 09:53 | Outpatient (REF) | payer OTHER, SELFPAY ==
--- NOTE | ~2024-02-02 | XR_ITS ---
EXAMINATION: XR CHEST CLINICAL INFORMATION: Cough COMPARISON: None available. TECHNIQUE: 2 views of the chest were obtained. FINDINGS: There is no gross pneumothorax. Heart size is normal. No significant pleural effusion. No focal consolidation to suggest pneumonia. XR/XR chest 2V IMPRESSION: No focal consolidation to suggest pneumonia. This study was presented today 02/02/2024 for interpretation. Stat results provided at this time as requested by referring provider. Electronically signed by: Anel Ellison MD 02/02/2024 11:02 AM [facility]
== END 2024-02-02 09:54 | disposition home or self-care (01) ==
LOC: HO.HMGCX 09:53
PROVIDERS: PCP Internal Medicine; Visit Provider Physician Assistant
DX: R05.9 Cough, unspecified (principal)
CPT/HCPCS: 71046

== ENCOUNTER 2024-02-05 09:49 | Outpatient (AMB) | payer OTHER, SELFPAY ==
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
[2024-02-05 11:07] VITALS: BP 130/88; PULSE 80; TEMP 36.8; O2SAT 98; BMI 26.2
== END 2024-02-05 13:52 | disposition home or self-care (01) ==
PROVIDERS: PCP Internal Medicine; Visit Provider Physician Assistant
DX: J06.9 Acute upper respiratory infection, unspecified (principal)

== ENCOUNTER 2024-02-05 09:49 | Outpatient (REF) | payer OTHER, SELFPAY ==
[2024-02-05 14:34] LABS: Influenza A PCR NEGATIVE (Negative); Influenza B PCR NEGATIVE (Negative); Resp Syncy Virus RNA Qual PCR NEGATIVE (Negative); SARS COV2 PCR INHOUSE NEGATIVE (Negative)
== END 2024-02-05 09:50 | disposition home or self-care (01) ==
LOC: HO.LNP 09:49
PROVIDERS: PCP Internal Medicine; Visit Provider Physician Assistant
DX: J06.9 Acute upper respiratory infection, unspecified (principal)
CPT/HCPCS: 0241U

== ENCOUNTER 2024-03-05 14:34 | Outpatient (AMB) | payer OTHER, SELFPAY ==
[2024-03-05 14:36] VITALS: BP 136/86; PULSE 65; O2SAT 97; BMI 26.2
--- NOTE | 2024-03-05 14:36 | A.OFFPC_ITS ---
Vital Signs 03/05/24 14:36 Height 5 ft 2 in Weight 143 lb BMI 26.2 BP 136/86 Blood Pressure Location Rt brachial Position Sitting Pulse 65 Pulse Source Pulse Oximeter Pulse Oximetry (%) 97 Intake Visit Reasons: Re scheduled from 02/12 Allergies codeine Allergy (Intermediate, Verified 03/05/24 14:36) hives Influenza Virus Vaccines Allergy (Intermediate, Verified 03/05/24 14:36) Gastrointestinal Upset ether Adverse Reaction (Verified 03/05/24 14:36) Confusion Medication List - Last Reconciled 03/05/24 by Andreea Jackson MD atovaquone-proguanil 250-100 mg (Malarone) take 1 tab once daily x1 day before exposure, during time in area, and x7 days after leaving area PO losartan-hydrochlorothiazide 100-25 mg 1 tab PO DAILY Tobacco use date assessed: 07/11/23 Dental Screening Dental Screen Date: 07/11/23 HPI Re scheduled from 02/12 HPI Details Assessment and Plan 58-year-old female with a history of ess ential hypertension, type 2 diabetes mellitus, and hyperlipidemia presenting for follow-up on chronic conditions and recent RSV infection. The patient experienced a significant respiratory infection with confirmed RSV but has since recovered. She reports exacerbation of stress urinary incontinence, likely aggravated during the illness. Current medications include losartan and hydrochlorothiazide. Notably, her LDL cholesterol levels remain elevated at 151, which necessitates intervention considering cardiac risk factors. Additionally, she seeks further evaluation for stress incontinence and has expressed interest in seeing a urogynecologist. 1. Essential Hypertension The patient's blood pressure is currently well-controlled at 136/86 mmHg with losartan and hydrochlorothiazide. Continue current antihypertensive regimen and monitor blood pressure regularly. 2. Respiratory Syncytial Virus Rsv Infec tion The patient was diagnosed with RSV confirmed by testing upon return from travel. Symptoms have resolved without significant medical intervention aside from supportive care. Ensure adequate rest and hydration as needed for respiratory wellness. 3. Stress Urinary Incontinence The patient is experiencing exacerbated stress incontinence, likely due to her recent RSV-related coughing. I will provide a referral to a urogynecologist for specialized management, as she is also reconsidering her previous surgical plan disrupted by the COVID-19 pandemic. The patient reports a history of a macrosomic delivery which may contribute to her pelvic floor dysfunction. 4. Type 2 Diabetes Mellitus The patient's last hemoglobin A1c was 7.1% in June. She will undergo blood testing to assess current glycemic control. We discussed the possibility of initiating medication if her blood sugar levels have worsened. 5. Hyperlipidemia LDL cholesterol levels are at 151 mg/dL. Advised starting lipid-lowering therapy to reduce cardiovascular risk, especially given her concurrent diabetes and hypertension. The possibility of atorvastatin was mentioned but requires patient consent and further discussion. Diagnostic results - RSV positive test on February 01. - Repeat negative RSV test on February 04. Problem List - Essential Hypertension - Type 2 Diabetes Mellitus - Hyperlipidemia - Stress Urinary Incontinence - Respiratory Syncytial Virus (RSV) Infe ction [place] [facility] The patient will be referred to a urogynecologist at [facility] for further evaluation and management of urinary stress incontinence. Patient Instructions - Continue current antihypertensive medi cations. - Perform fasting blood tests as ordered today. - Consideration of lipid-lowering medica tion to manage high cholesterol levels. - Follow-up with a urogynecologist for s tre urinary incontinence evaluation. - Monitor blood pressure and blood sugar regularly. - Maintain hydration and rest as needed in respiratory wellness. - Return in three months for a follow-up appointment. Labs are needed today Follow-up 3 months [facility] Medical History History of rectal injury Diabetes HTN (hypertension) Surgical History Hx of colonoscopy Hx of cardiac catheterization Family History Mother Hypertension Father No problems noted. Social History Housing: House Alcohol intake: never Patient Tobacco Use Status: Never used Tobacco e-Cigarette/Vaping Use: Never Used Second Hand Smoke Exposure: No Current occupational status: employed Cognitive needs: No Hearing needs: No Vision needs: Yes Questionnaire PHQ-9 Over the last 2 weeks, how often have you been bothered by any of the following problems? 1. Little interest or pleasure in doing things: not at all 2. Feeling down, depressed, or hopeless: not at all 3. Trouble falling or staying asleep, or sleeping too much: not at all 4. Feeling tired or having little energy: not at all 5. Poor appetite or overeating: not at all 6. Feeling bad about yourself - or that you are a failure or have let yourself o r your family down: not at all 7. Trouble concentrating on things, such as reading the newspaper or watching television: not at all 8. Moving or speaking so slowly that other people could have noticed. Or the opposite - being so fidgety or restless that you have been moving around a lot more than usual: not at all 9. Thoughts that you would be better off or of hurting yourself in some way: not at all Total score: 0 Depression Screening Interpretation: Negative Depression Screening Done: Yes 29669 - PHQ-9 Billing: Yes Source: Developed by Drs. Silvio Schneider, Carmel Delgadillo, Andrea oshea nd colleagues, with an educational lynda from [employer]. Thrive Questionnaire Date Thrive assessed: 03/05/24 I am a: Patient What is your living situation today?: I have a steady place to live Within the past 12 months, did the food you bought not last and you didn't have the money to get more?: Often true Within the past 12 months, did you worry whether your food would run out before you got money to buy more?: I choose not to answer this question Do you have trouble paying for medicines?: No Do you have trouble getting transportation to medical appointments?: No Do you have trouble paying your heating and electricity bill?: I choose not to answer this question Do you have trouble taking care of your child, family member or friend?: No Do you have trouble with day-to-day activities such as bathing, preparing meals, shopping, managing finances, etc.?: No Are you currently unemployed and looking for a job?: No Are you interested in more education?: Yes Please select the resources that you would like help with: Education Currently or been in a relationship where the following occur: No concerns reported THRIVE Score: 1 AUDIT C Alcohol Use Questionnaire (AUDIT-C) 1. How often do you have a drink containing alcohol?: Never 3. How often do you have six or more drinks on one occasion?: Never Total Score: 0 Score Reviewed/Action Taken: Yes NORBERTO-7 AMB Questionnaire NORBERTO-7 Date NORBERTO - 7 assessed: 03/05/24 Feeling nervous, anxious, or on edge: 0 = Not at all Not being able to stop or control worryin = Not at all Worrying too much about different things: 1 = Several days Trouble relaxin = Not at all Being so restless that it is hard to sit still: 0 = Not at all Becoming easily annoyed or irritable: 1 = Several days Feeling afraid as if something awful might happen: 0 = Not at all Total NORBERTO-7 score (0-4 normal; 5-9 mild; 10-14 moderate; 15-21 severe): 2 Source: Developed by Drs. Silvio Schneider, Carmel Delgadillo, Andrea Neal and colleagues, with an educational lynda from [employer]. NORBERTO-7 Assessment Billing NORBERTO-7 Assessment Tool: NORBERTO-7 Assessment 75292 Physical exam (Primary Care) Vital Signs: Last Vital Signs Pulse 65 03/05/24 14:36 BP 136/86 03/05/24 14:36 Pulse Ox 97 03/05/24 14:36 BMI result Body Mass Index 26.2 Tobacco/Smoking Status: Tobacco use Status Tobacco use date assessed 07/11/23 03/05/24 14:38 Patient Tobacco Use Status Never used Tobacco 03/05/24 14:38 e-Cigarette/Vaping Use Never Used 03/05/24 14:38 PHQ-9: PHQ-9 Score PHQ-9: Total score 0 03/05/24 14:38 Depression Screening Interpretation: Negative Thrive Assessment: Date of Thrive Assessment Date Thrive assessed 03/05/24 03/05/24 14:38 Currently or been in a relationship where the following occur: No concerns reported Coding Level of Care Code Est Pt Level 4 (76579) Diagnoses Essential hypertension I10 Diet-controlled diabetes mellitus E11.9 Lipid disorder E78.9 Stress incontinence N39.3 Additional Codes NORBERTO-7 Assessment Billing - NORBERTO-7 Assessment Tool: NORBERTO-7 Assessment 73448 ([id number]) PHQ-9 - 63684 - PHQ-9 Billing: Yes ([id number]) Assessment & Plan Assessment & Plan (1) Essential hypertension: Code(s): I10 - Essential (primary) hypertension Category: Medical (2) Diet-controlled diabetes mellitus: Code(s): E11.9 - Type 2 diabetes mellitus without complications Category: Medical (3) Lipid disorder: Code(s): E78.9 - Disorder of lipoprotein metabolism, unspecified Category: Medical (4) Stress incontinence: Code(s): N39.3 - Stress incontinence (female) (male) Category: Medical Plan Assessment and Plan 58-year-old female with a history of essential hypertension, type 2 diabetes mellitus, and hyperlipidemia presenting for follow-up on chronic conditions and recent RSV infection. The patient experienced a significant respiratory infection with confirmed RSV but has since recovered. She reports exacerbation of stress urinary incontinence, likely aggravated during the illness. Current medications include losartan and hydrochlorothiazide. Notably, her LDL cholesterol levels remain elevated at 151, which necessitates intervention considering cardiac risk factors. Additionally, she seeks further evaluation for stress incontinence and has expressed interest in seeing a urogynecologist. 1. Essential Hypertension The patient's blood pressure is currently well-controlled at 136/86 mmHg with losartan and hydrochlorothiazide. Continue current antihypertensive regimen and monitor blood pressure regularly. 2. Respiratory Syncytial Virus Rsv Infection The patient was diagnosed with RSV confirmed by testing upon return from travel. Symptoms have resolved without significant medical intervention aside from supportive care. Ensure adequate rest and hydration as needed for respiratory wellness. 3. Stress Urinary Incontinence The patient is experiencing exacerbated stress incontinence, likely due to her recent RSV-related coughing. I will provide a referral to a urogynecologist for specialized management, as she is also reconsidering her previous surgical plan disrupted by the COVID-19 pandemic. The patient reports a history of a macrosomic delivery which may contribute to her pelvic floor dysfunction. 4. Type 2 Diabetes Mellitus The patient's last hemoglobin A1c was 7.1% in June. She will undergo blood testing to assess current glycemic control. We discussed the possibility of initiating medication if her blood sugar levels have worsened. 5. Hyperlipidemia LDL cholesterol levels are at 151 mg/dL. Advised starting lipid-lowering therapy to reduce cardiovascular risk, especially given her concurrent diabetes and hypertension. The possibility of atorvastatin was mentioned but requires patient consent and further discussion. Diagnostic results - RSV positive test on February 01. - Repeat negative RSV test on February 04. Problem List - Essential Hypertension - Type 2 Diabetes Mellitus - Hyperlipidemia - Stress Urinary Incontinence - Respiratory Syncytial Virus (RSV) Infection [place] [facility] The patient will be referred to a urogynecologist at [facility] for further evaluation and management of urinary stress incontinence. Patient Instructions - Continue current antihypertensive medications. - Perform fasting blood tests as ordered today. - Consideration of lipid-lowering medication to manage high cholesterol levels. - Follow-up with a urogynecologist for stress urinary incontinence evaluation. - Monitor blood pressure and blood sugar regularly. - Maintain hydration and rest as needed in respiratory wellness. - Return in three months for a follow-up appointment. Labs are needed today Follow-up 3 months Orders: Orders Complete Blood Count Auto Diff Today E11.9 - Type 2 diabetes mellitus without complications, E78.9 - Disorder of lipoprotein metabolism, unspecified, I10 - Essential (primary) hypertension, N39.3 - Stress incontinence (female) (male) Lipid Panel Today E11.9 - Type 2 diabetes mellitus without complications, E78.9 - Disorder of lipoprotein metabolism, unspecified, I10 - Essential (primary) h ypertension, N39.3 - Stress incontinence (female) (male) Microalbumin, Random (w Creat) Today E11.9 - Type 2 diabetes mellitus without complications, E78.9 - Disorder of lipoprotein metabolism, unspecified, I10 - Essential (primary) hypertension, N39.3 - Stress incontinence (female) (male) Comprehensive [place]. Panel Fast Today E11.9 - Type 2 diabetes mellitus without complications, E78.9 - Disorder of lipoprotein metabolism, unspecified, I10 - Essential (primary) hypertension, N39.3 - Stress incontinence (female) (male) Hemoglobin A1c Today E11.9 - Type 2 diabetes mellitus without complications, E78.9 - Disorder of lipoprotein metabolism, unspecified, I10 - Essential (primary) hypertension, N39.3 - Stress incontinence (female) (male) Referrals Urogynecology Referral N39.3 - Stress incontinence (female) (male)
== END 2024-03-05 15:42 | disposition home or self-care (01) ==
PROVIDERS: PCP Internal Medicine; Visit Provider Internal Medicine
DX: I10 Essential (primary) hypertension (principal); E11.9 Type 2 diabetes mellitus without complications; E78.9 Disorder of lipoprotein metabolism, unspecified; N39.3 Stress incontinence (female) (male)

== ENCOUNTER 2024-03-05 14:34 | Outpatient (REF) | payer OTHER, SELFPAY ==
[2024-03-05 16:02] LABS: MANUAL DIFF FLAG NO
[2024-03-05 16:09] LABS: Basophils Percent Auto 0.5 % (0-2); Eosinophils Absolute Auto 0.1 X10*3/uL (0.0-0.4); Eosinophils Percent Auto 1.4 % (0-4); Hematocrit 40.2 % (37.0-47.0); Hemoglobin 13.1 g/dl (12.0-16.0); Imm Gran Abs Auto 0.03 X10*3/uL (0.00-0.03); Imm Gran Pct Auto 0.5 % (0.0-0.4); Lymphocytes Absolute Auto 3.1 X10*3/uL (1.2-4.9); Lymphocytes Percent Auto 51.9 % (20-40); Mean Corpuscular HGB Conc 32.6 g/dl (31.0-35.0); Mean Corpuscular Hemoglobin 26.7 pg (27.0-33.0); Mean Corpuscular Volume 81.9 fL (80.0-98.0); Mean Platelet Volume 11.9 fL (9.4-12.3); Monocytes Absolute Auto 0.4 X10*3/uL (0.1-1.2); Monocytes Percent Auto 7.3 % (2-11); Neutrophils Absolute Auto 2.3 x10*3/uL (2.0-8.3); Neutrophils Percent Auto 38.4 % (45-73); Platelet Count 262 X10*3/uL (160-400); Red Blood Count 4.91 X10*6/uL (4.20-5.50); Red Cell Distribution Width 14.4 % (11.0-16.0); White Blood Count 5.9 X10*3/uL (4.8-10.8)
[2024-03-05 16:28] LABS: Estimated Average Glucose 217 mg/dL; Hemoglobin A1C 259.0445 umol/L; Hemoglobin A1c % 9.2 % (<6.0); Total Hemoglobin (HGBA1C) 3350.0961 umol/L
[2024-03-05 16:38] LABS: Aspartate Amino Transferase 25 U/L (5-31)
[2024-03-05 16:39] LABS: Albumin Level 4.5 g/dL (3.5-5.0); Alkaline Phosphatase 82 U/L (39-117); Anion Gap 10 (12-20); Bilirubin Total 0.4 mg/dL (0.0-1.0); Blood Urea Nitrogen 11 mg/dL (9-16); Calcium 9.7 mg/dL (8.4-10.2); Carbon Dioxide 30 mmol/L (22-29); Chloride 102 mmol/L (96-108); Cholesterol 228 mg/dL (<200); Estimated Glomerular Filt Rate > 60; Glucose Fasting 227 mg/dL (60-99); HDL Cholesterol 52 mg/dL (>40); LDL Cholesterol Calculated 164 mg/dL (<100); Potassium 3.2 mmol/L (3.3-5.1); Sodium 139 mmol/L (135-145); Total Protein 8.7 g/dL (6.5-8.0); Triglycerides 64 mg/dL (<150)
[2024-03-05 16:40] LABS: Creatinine Urine 127.21 mg/dL
[2024-03-05 16:58] LABS: Alanine Aminotransferase 37 U/L (0-31)
== END 2024-03-05 14:35 | disposition home or self-care (01) ==
LOC: HO.HMGCLDS 14:34
PROVIDERS: PCP Internal Medicine; Visit Provider Internal Medicine
DX: I10 Essential (primary) hypertension (principal); E11.9 Type 2 diabetes mellitus without complications; E78.5 Hyperlipidemia, unspecified; N39.3 Stress incontinence (female) (male); Z79.899 Other long term (current) drug therapy
CPT/HCPCS: 36415; 80053; 80061; 82043; 82570; 83036; 85025; 96127

== ENCOUNTER 2024-03-11 08:59 | Outpatient (AMB) | payer OTHER, SELFPAY ==
--- NOTE | 2024-03-11 09:04 | MHC.PC.OV ---
Intake Visit Reasons: Discuss Labs Allergies codeine Allergy (Intermediate, Verified 03/11/24 09:05) hives Influenza Virus Vaccines Allergy (Intermediate, Verified 03/11/24 09:05) Gastrointestinal Upset ether Adverse Reaction (Verified 03/11/24 09:05) Confusion Medication List - Last Reconciled 03/11/24 by Andreea Jackson MD atovaquone-proguanil 250-100 mg (Malarone) take 1 tab once daily x1 day before exposure, during time in area, and x7 days after leaving area PO losartan-hydrochlorothiazide 100-25 mg 1 tab PO DAILY Tobacco use date assessed: 03/11/24 Dental Screening Dental Screen Date: 03/11/24 Did you have a dental visit in the last 12 months?: Yes Did you have a dental problem in the last 6 months where you did not have access to dental care?: No Was dental information given to patient?: Patient has dentist HPI Discuss Labs HPI Details Chief Complaint Concern about elevated blood sugar levels. Assessment and Plan 58-year-old female with a history of Type 2 Diabetes Mellitus presenting for follow-up due to elevated hemoglobin A1c, recently measured at 9.2%. The patient's diabetes management has previously been conservative due to her preference to avoid medications. However, her blood glucose levels have reached a point where pharmacological intervention is necessary to prevent potential complications and hospitalizations. Hypothyroidism was noted as a past diagnosis but was not the primary focus today. 1. Type 2 Diabetes Mellitus - The patient's previous hemoglobin A1c was 7.1% in June of this year and is now 9.2%, indicating suboptimal glycemic control. Started on glipizide 5 mg daily in the morning. Advised to monitor fasting blood glucose levels daily with provided glucometer. Discussed the importance of lifestyle modifications, including diet and exercise, for diabetes management. Arranged a follow-up call in 4 to 5 weeks to assess blood glucose readings and adjust medication dosage as necessary. 2. Hypothyroidism - Thyroid function was noted as normal in the past; no current thyroid treatment is in place. Patient reports no ongoing symptoms suggestive of hypothyroidism at this time. Monitor for symptoms and reevaluate thyroid function at a later visit if indicated. Diagnostic results - Labs: - Hemoglobin A1c: 7.1% (June) of this year - Previous thyroid function test (4 years ago): Normal Problem List - Type 2 Diabetes Mellitus - Hypothyroidism Health Maintenance - Discussed monitoring blood glucose daily and maintaining a fasting blood sugar level of less than 99 mg/dL. - Advised on lifestyle modifications, including dietary adjustments and regular physical activity, to improve diabetes control. Patient Instructions - Begin taking glipizide 5 mg in the morning as prescribed. - Check blood glucose levels each morning and record the results. - Expect a follow-up call in about 4 to 5 weeks to review blood glucose levels. - Maintain a diet low in refined sugars and high in fiber, and incorporate regular physical exercise. - Report any symptoms of hypoglycemia or concerns with the medication. - Call the office if there are any new symptoms, particularly related to thyroid function. [facility] Medical History History of rectal injury Diabetes HTN (hypertension) Surgical History Hx of colonoscopy Hx of cardiac catheterization Family History Mother Hypertension Father No problems noted. Social History Housing: House Alcohol intake: never Patient Tobacco Use Status: Never used Tobacco e-Cigarette/Vaping Use: Never Used Second Hand Smoke Exposure: No Current occupational status: employed Cognitive needs: No Hearing needs: No Vision needs: Yes Questionnaire Thrive Questionnaire Date Thrive assessed: 03/05/24 AUDIT C Alcohol Use Questionnaire (AUDIT-C) 1. How often do you have a drink containing alcohol?: Never 3. How often do you have six or more drinks on one occasion?: Never Total Score: 0 Score Reviewed/Action Taken: Yes NORBERTO-7 AMB Questionnaire NORBERTO-7 Date NORBERTO - 7 assessed: 03/05/24 Source: Developed by Drs. Silvoi Schneider, Carmel Delgadillo, Andrea Neal and colleagues, with an educational lynda from [employer]. Review of Systems Const Denies chills and Denies fever(s) ENT Denies epistaxis and Denies nasal discharge Card Denies chest pain Resp Denies chest congestion, Denies cough and Denies hemoptysis GI Denies diarrhea and Denies nausea Skin/Breast Denies rash Neuro Reports no additional complaints Psych Reports no additional complaints Endo Reports no additional complaints Physical exam (Primary Care) Tobacco/Smoking Status: Tobacco use Status Tobacco use date assessed 03/11/24 03/11/24 09:05 Patient Tobacco Use Status Never used Tobacco 03/11/24 09:05 e-Cigarette/Vaping Use Never Used 03/11/24 09:05 Thrive Assessment: Date of Thrive Assessment Date Thrive assessed 03/05/24 03/11/24 09:05 Telehealth Telehealth Telehealth Platform: [employer] Location of provider rendering services: practice address Location of patient: address on file Patient Identification confirmed using: Name, : Yes Telehealth method: voice only Patient verbally consented to treatment: Yes Patient verbally consented to billing insurance company: Yes Patient informed of any privacy concerns related to visit: Yes Minutes spent on Phone/Video with Pt.: 14 Coding Level of Care Code Tele Est Pt Level 3 (97356) Diagnoses Non-insulin dependent type 2 diabetes mellitus E11.9 Lipid disorder E78.9 Essential hypertension I10 Assessment & Plan Assessment & Plan (1) Non-insulin dependent type 2 diabetes mellitus: Code(s): E11.9 - Type 2 diabetes mellitus without complications Category: Medical (2) Lipid disorder: Code(s): E78.9 - Disorder of lipoprotein metabolism, unspecified Category: Medical (3) Essential hypertension: Code(s): I10 - Essential (primary) hypertension Category: Medical Plan Chief Complaint Concern about elevated blood sugar levels. Assessment and Plan 58-year-old female with a history of Type 2 Diabetes Mellitus presenting for follow-up due to elevated hemoglobin A1c, recently measured at 9.2%. The patient's diabetes management has previously been conservative due to her preference to avoid medications. However, her blood glucose levels have reached a point where pharmacological intervention is necessary to prevent potential complications and hospitalizations. Hypothyroidism was noted as a past diagnosis but was not the primary focus today. 1. Type 2 Diabetes Mellitus - The patient's previous hemoglobin A1c was 7.1% in June of this year and is now 9.2%, indicating suboptimal glycemic control. Started on glipizide 5 mg daily in the morning. Advised to monitor fasting blood glucose levels daily with provided glucometer. Discussed the importance of lifestyle modifications, including diet and exercise, for diabetes management. Arranged a follow-up call in 4 to 5 weeks to assess blood glucose readings and adjust medication dosage as necessary. 2. Hypothyroidism - Thyroid function was noted as normal in the past; no current thyroid treatment is in place. Patient reports no ongoing symptoms suggestive of hypothyroidism at this time. Monitor for symptoms and reevaluate thyroid function at a later visit if indicated. 3-elevated lipids, patient is not interested in starting medication for that Diagnostic results - Labs: - Hemoglobin A1c: 7.1% (June) of this year - Previous thyroid function test (4 years ago): Normal Problem List - Type 2 Diabetes Mellitus - Hypothyroidism Health Maintenance - Discussed monitoring blood glucose daily and maintaining a fasting blood sugar level of less than 99 mg/dL. - Advised on lifestyle modifications, including dietary adjustments and regular physical activity, to improve diabetes control. Patient Instructions - Begin taking glipizide 5 mg in the morning as prescribed. - Check blood glucose levels each morning and record the results. - Expect a follow-up call in about 4 to 5 weeks to review blood glucose levels. - Maintain a diet low in refined sugars and high in fiber, and incorporate regular physical exercise. - Report any symptoms of hypoglycemia or concerns with the medication. - Call the office if there are any new symptoms, particularly related to thyroid function. Orders: Orders Comprehensive [place]. Panel Fast 2 Months E11.9 - Type 2 diabetes mellitus without complications, E78.9 - Disorder of lipoprotein metabolism, unspecified, I10 - Essential (primary) hypertension TSH reflex Free T4 2 Months E11.9 - Type 2 diabetes mellitus without complications, E78.9 - Disorder of lipoprotein metabolism, unspecified, I10 - Essential (primary) hypertension Microalbumin, Random (w Creat) 2 Months E11.9 - Type 2 diabetes mellitus without complications, E78.9 - Disorder of lipoprotein metabolism, unspecified, I10 - Essential (primary) hypertension Hemoglobin A1c 2 Months E11.9 - Type 2 diabetes mellitus without complications, E78.9 - Disorder of lipoprotein metabolism, unspecified, I10 - Essential (primary) hypertension Lipid Panel 2 Months E11.9 - Type 2 diabetes mellitus without complications, E78.9 - Disorder of lipoprotein metabolism, unspecified, I10 - Essential (primary) hypertension Medications: New glipizide 5 mg PO DAILY 90 tabs 0RF Discontinued atovaquone-proguanil 250-100 mg (Malarone) Discontinued Reason: Patient Completed Course take 1 tab once daily x1 day before exposure, during time in area, and x7 days after leaving area PO 30 tabs 0RF
== END 2024-03-11 10:00 | disposition home or self-care (01) ==
LOC: HO.HMCC 08:59
PROVIDERS: PCP Internal Medicine; Visit Provider Internal Medicine
DX: E11.9 Type 2 diabetes mellitus without complications (principal); E78.9 Disorder of lipoprotein metabolism, unspecified; I10 Essential (primary) hypertension

== ENCOUNTER 2024-06-04 14:56 | Outpatient (AMB) | payer OTHER, SELFPAY ==
[2024-06-04 15:00] VITALS: BP 128/80; PULSE 52; O2SAT 96; BMI 28.1
--- NOTE | 2024-06-04 15:00 | MHC.PC.OV ---
Vital Signs 06/04/24 15:00 Height 5 ft 2 in Weight 153 lb 8 oz BMI 28.1 BP 128/80 Blood Pressure Location Rt brachial Position Sitting Pulse 52 Pulse Source Pulse Oximeter Pulse Oximetry (%) 96 Oxygen Delivery Method Room Air Intake Visit Reasons: 3m follow up Allergies codeine Allergy (Intermediate, Verified 06/04/24 15:00) hives Influenza Virus Vaccines Allergy (Intermediate, Verified 06/04/24 15:00) Gastrointestinal Upset ether Adverse Reaction (Verified 06/04/24 15:00) Confusion Medication List - Last Reconciled 06/04/24 by Andreea Jackson MD Alcohol Prep Pads (alcohol swabs) 1 pad topical BID NS FreeStyle Lancets (lancets) Check blood sugar twice daily as directed NS FreeStyle Lite Meter (blood-glucose meter) Check blood sugar twice daily as directed NS FreeStyle Lite Strips (blood sugar diagnostic) Check blood sugar twice daily as directed NS glipizide 5 mg PO DAILY losartan-hydrochlorothiazide 100-25 mg 1 tab PO DAILY Tobacco use date assessed: 06/04/24 Dental Screening Dental Screen Date: 06/04/24 Did you have a dental visit in the last 12 months?: Yes Did you have a dental problem in the last 6 months where you did not have access to dental care?: No Was dental information given to patient?: Patient has dentist HPI 3m follow up HPI Details History - The patient is a 58-year-old female presenting with Type 2 Diabetes Mellitus. - She reports improvement in blood glucose levels with current medication regimen of Glipizide 5 mg daily, although she is considering alternative dietary management. - Hemoglobin A1c was recorded at 6.1%. Her last hemoglobin A1c was 9.1 in February when we started the glipizide 5 mg - She consumes only one meal daily in the evening following her intermittent fasting routine. - Previous dietary choice of broken rice led to increased glucose levels inadvertently. - The patient is also managing Essential Hypertension and experiences dizziness, prompting a reduction in her antihypertensive medication dosage to half a tablet daily. - patient also have a lipid disorder but does not want to take medications that Problem List - Type 2 Diabetes Mellitus - Essential Hypertension - lipid disorder Patient Instructions - Continue monitoring blood glucose levels daily. - Hold the use of Glipizide and follow dietary modifications for diabetes management. - Continue taking half a tablet of the prescribed blood pressure medication daily. - Return for lab tests two days before the next appointment in to reassess glucose control and blood pressure management. - Schedule the next appointment in . Review of Systems - General: No fever no chills - Neurological: No headaches no dizziness - Ear nose throat: No sore throat no hearing difficulty no ear pain - Cardiovascular: No syncope, no chest pain, no palpitations - Gastrointestinal: No nausea vomiting or diarrhea - Endocrine: No polyuria polydipsia no heat intolerance - Genitourinary: No dysuria , no blood in urine Physical Exam - General: No acute distress - HEENT: No acute findings - Neck: Supple - Respiratory system: Able to talk in full sentences, no audible wheeze - cardiovascular: S1-S2 regular in rate and rhythm - Gastrointestinal: No pain - Extremities: No new findings - LUSTERER: Alert awake oriented x3 motor sensory intact - Skin: Normal turgor [facility] Medical History History of rectal injury Diabetes HTN (hypertension) Surgical History Hx of colonoscopy Hx of cardiac catheterization Family History Mother Hypertension Father No problems noted. Social History Housing: House Alcohol intake: never Patient Tobacco Use Status: Never used Tobacco e-Cigarette/Vaping Use: Never Used Second Hand Smoke Exposure: No Current occupational status: employed Cognitive needs: No Hearing needs: No Vision needs: Yes Questionnaire Thrive Questionnaire Date Thrive assessed: 03/05/24 I am a: Patient What is your living situation today?: I have a steady place to live Within the past 12 months, did the food you bought not last and you didn't have the money to get more?: Often true Within the past 12 months, did you worry whether your food would run out before you got money to buy more?: I choose not to answer this question Do you have trouble paying for medicines?: No Do you have trouble getting transportation to medical appointments?: No Do you have trouble paying your heating and electricity bill?: I choose not to answer this question Do you have trouble taking care of your child, family member or friend?: No Do you have trouble with day-to-day activities such as bathing, preparing meals, shopping, managing finances, etc.?: No Are you currently unemployed and looking for a job?: No Are you interested in more education?: Yes Please select the resources that you would like help with: Education Currently or been in a relationship where the following occur: No concerns reported THRIVE Score: 1 NORBERTO-7 AMB Questionnaire NORBERTO-7 Date NORBERTO - 7 assessed: 03/05/24 Source: Developed by Drs. Silvio Schneider, Carmel Delgadillo, Andrea Neal and colleagues, with an educational lynda from [employer]. Review of Systems Const Denies chills and Denies fever(s) ENT Denies epistaxis and Denies nasal discharge Card Denies chest pain Resp Denies chest congestion, Denies cough and Denies hemoptysis GI Denies diarrhea and Denies nausea Skin/Breast Denies rash Neuro Reports no additional complaints Psych Reports no additional complaints Endo Reports no additional complaints Physical exam (Primary Care) Vital Signs: Last Vital Signs Pulse 52 06/04/24 15:00 BP 128/80 06/04/24 15:00 Pulse Ox 96 06/04/24 15:00 Oxygen Delivery Method Room Air 06/04/24 15:00 BMI result Body Mass Index 28.1 Tobacco/Smoking Status: Tobacco use Status Tobacco use date assessed 06/04/24 06/04/24 15:02 Patient Tobacco Use Status Never used Tobacco 06/04/24 15:02 e-Cigarette/Vaping Use Never Used 06/04/24 15:02 Thrive Assessment: Date of Thrive Assessment Date Thrive assessed 03/05/24 06/04/24 15:02 Currently or been in a relationship where the following occur: No concerns reported Const General: cooperative, comfortable and no acute distress Orientation/consciousness: patient oriented x3 HENMT Head: Yes normocephalic Eyes General: appearance normal, both eyes and all related structures Neck Neck: Yes supple Resp Effort & Inspection: normal respiratory effort, no cough and no stridor Cardio Rhythm: regular rhythm Heart sounds: S1 normal heart sound present and S2 normal heart sound present Skin General skin exam: turgor normal Neuro General: patient oriented x3, tone normal and moves all extremities Extrem Right lower extremity: no edema Left lower extremity: no edema Coding Level of Care Code Est Pt Level 3 (42684) Diagnoses Non-insulin dependent type 2 diabetes mellitus E11.9 Lipid disorder E78.9 Essential hypertension I10 Assessment & Plan Assessment & Plan (1) Non-insulin dependent type 2 diabetes mellitus: Code(s): E11.9 - Type 2 diabetes mellitus without complications Category: Medical (2) Lipid disorder: Code(s): E78.9 - Disorder of lipoprotein metabolism, unspecified Category: Medical (3) Essential hypertension: Code(s): I10 - Essential (primary) hypertension Category: Medical Plan History - The patient is a 58-year-old female presenting with Type 2 Diabetes Mellitus. - She reports improvement in blood glucose levels with current medication regimen of Glipizide 5 mg daily, although she is considering alternative dietary management. - Hemoglobin A1c was recorded at 6.1%. Her last hemoglobin A1c was 9.1 in February when we started the glipizide 5 mg - She consumes only one meal daily in the evening following her intermittent fasting routine. - Previous dietary choice of broken rice led to increased glucose levels inadvertently. - The patient is also managing Essential Hypertension and experiences dizziness, prompting a reduction in her antihypertensive medication dosage to half a tablet daily. - patient also have a lipid disorder but does not want to take medications that Problem List - Type 2 Diabetes Mellitus - Essential Hypertension - lipid disorder Patient Instructions - Continue monitoring blood glucose levels daily. - Hold the use of Glipizide and follow dietary modifications for diabetes management. - Continue taking half a tablet of the prescribed blood pressure medication daily. - Return for lab tests two days before the next appointment in mid-August to reassess glucose control and blood pressure management. - Schedule the next appointment in mid-August. Orders: Orders Complete Blood Count Auto Diff Today E11.9 - Type 2 diabetes mellitus without complications, E78.9 - Disorder of lipoprotein metabolism, unspecified, I10 - Essential (primary) hypertension Comprehensive [place]. Panel Fast Today E11.9 - Type 2 diabetes mellitus without complications, E78.9 - Disorder of lipoprotein metabolism, unspecified, I10 - Essential (primary) hypertension Hemoglobin A1c Today E11.9 - Type 2 diabetes mellitus without complications, E78.9 - Disorder of lipoprotein metabolism, unspecified, I10 - Essential (primary) hypertension Lipid Panel Today E11.9 - Type 2 diabetes mellitus without complications, E78.9 - Disorder of lipoprotein metabolism, unspecified, I10 - Essential (primary) hypertension
== END 2024-06-04 15:47 | disposition home or self-care (01) ==
PROVIDERS: PCP Internal Medicine; Visit Provider Internal Medicine
DX: Z13.9 Encounter for screening, unspecified (principal)

== ENCOUNTER → 2024-06-04 14:56 | Outpatient (BNVA) | payer OTHER, SELFPAY | PROVIDERS: PCP Internal Medicine; Visit Provider Internal Medicine | DX: E11.9 Type 2 diabetes mellitus without complications (principal); E78.9 Disorder of lipoprotein metabolism, unspecified; I10 Essential (primary) hypertension | CPT/HCPCS: 83036 ==

== ENCOUNTER 2024-09-10 15:06 | Outpatient (REF) | payer OTHER, SELFPAY ==
[2024-09-10 16:08] LABS: MANUAL DIFF FLAG NO
[2024-09-10 16:16] LABS: Basophils Percent Auto 0.6 % (0-2); Eosinophils Percent Auto 0.6 % (0-4); Hematocrit 37.4 % (37.0-47.0); Hemoglobin 12.5 g/dl (12.0-16.0); Imm Gran Abs Auto 0.01 X10*3/uL (0.00-0.03); Imm Gran Pct Auto 0.2 % (0.0-0.4); Lymphocytes Absolute Auto 2.8 X10*3/uL (1.2-4.9); Lymphocytes Percent Auto 55.1 % (20-40); Mean Corpuscular HGB Conc 33.4 g/dl (31.0-35.0); Mean Corpuscular Hemoglobin 27.6 pg (27.0-33.0); Mean Corpuscular Volume 82.6 fL (80.0-98.0); Mean Platelet Volume 11.4 fL (9.4-12.3); Monocytes Absolute Auto 0.4 X10*3/uL (0.1-1.2); Monocytes Percent Auto 6.8 % (2-11); Neutrophils Absolute Auto 1.9 x10*3/uL (2.0-8.3); Neutrophils Percent Auto 36.7 % (45-73); Platelet Count 272 X10*3/uL (160-400); Red Blood Count 4.53 X10*6/uL (4.20-5.50); White Blood Count 5.1 X10*3/uL (4.8-10.8)
[2024-09-10 16:23] LABS: Estimated Average Glucose 120 mg/dL; Hemoglobin A1c % 5.8 % (<6.0); Total Hemoglobin (HGBA1C) 3258.1586 umol/L
[2024-09-10 16:35] LABS: Alanine Aminotransferase 34 U/L (0-31); Albumin Level 4.8 g/dL (3.5-5.0); Alkaline Phosphatase 71 U/L (39-117); Anion Gap 12 (12-20); Aspartate Amino Transferase 29 U/L (5-31); Bilirubin Total 0.3 mg/dL (0.0-1.0); Blood Urea Nitrogen 11 mg/dL (9-16); Calcium 9.2 mg/dL (8.4-10.2); Carbon Dioxide 28 mmol/L (22-29); Chloride 103 mmol/L (96-108); Cholesterol 155 mg/dL (<200); Estimated Glomerular Filt Rate > 60; Glucose Fasting 102 mg/dL (60-99); HDL Cholesterol 49 mg/dL (>40); LDL Cholesterol Calculated 98 mg/dL (<100); Potassium 3.2 mmol/L (3.3-5.1); Sodium 140 mmol/L (135-145); Triglycerides 40 mg/dL (<150)
== END 2024-09-10 15:07 | disposition home or self-care (01) ==
LOC: HO.HMGCLDS 15:06
PROVIDERS: PCP Internal Medicine; Visit Provider Internal Medicine
DX: E11.9 Type 2 diabetes mellitus without complications (principal); I10 Essential (primary) hypertension; E78.9 Disorder of lipoprotein metabolism, unspecified; S30.1XXA Contusion of abdominal wall, initial encounter; L91.0 Hypertrophic scar; W22.09XA Striking against other stationary object, initial encounter; Y93.G3 Activity, cooking and baking; Y92.9 Unspecified place or not applicable; Y99.9 Unspecified external cause status; Z79.899 Other long term (current) drug therapy; Z13.31 Encounter for screening for depression
CPT/HCPCS: 36415; 80053; 80061; 83036; 85025; 96127

== ENCOUNTER 2024-09-10 15:22 | Outpatient (AMB) | payer OTHER, SELFPAY ==
[2024-09-10 15:26] VITALS: BP 132/78; PULSE 78; RESP 17; O2SAT 99; BMI 24.6
--- NOTE | 2024-09-10 15:26 | A.OFFPC_ITS ---
Vital Signs 09/10/24 15:26 Height 5 ft 2 in Weight 134 lb 8 oz BMI 24.6 BP 132/78 Blood Pressure Location Rt brachial Position Sitting Respiration 17 Pulse 78 Pulse Source Pulse Oximeter Pulse Oximetry (%) 99 Oxygen Delivery Method Room Air Intake Visit Reasons: 3m follow up Allergies codeine Allergy (Intermediate, Verified 09/10/24 15:27) hives Influenza Virus Vaccines Allergy (Intermediate, Verified 09/10/24 15:27) Gastrointestinal Upset ether Adverse Reaction (Verified 09/10/24 15:27) Confusion Medication List - Last Reconciled 09/10/24 by Andreea Jackson MD Alcohol Prep Pads (alcohol swabs) 1 pad topical BID NS FreeStyle Lancets (lancets) Check blood sugar twice daily as directed NS FreeStyle Lite Meter (blood-glucose meter) Check blood sugar twice daily as directed NS FreeStyle Lite Strips (blood sugar diagnostic) Check blood sugar twice daily as directed NS glipizide 5 mg PO DAILY losartan-hydrochlorothiazide 100-25 mg 1 tab PO DAILY Tobacco use date assessed: 09/10/24 Dental Screening Dental Screen Date: 09/10/24 Did you have a dental problem in the last 6 months where you did not have access to dental care?: No HPI 3m follow up HPI Details History - The patient is a 58-year-old female ca me in for her regular follow-up appointment presenting with a hematoma on left abdominal wall - The hematoma developed after the patie nt accidentally hit the edge of a kitchen table while cooking for a gathering, which occurred last Friday. - The patient reported the presence of a substantial bruise and a palpable lump at the site of injury. - Additionally, the patient experienced a transient increase in blood glucose levels, noting readings of 109-112 mg/dL after a cold last week, which is higher than her usual range of 84-96 mg/dL. - The patient is not currently taking gl ipizide, despite previously considering it for her diabetes management. Blood pressure is stable with losartan 50-hydrochlorothiazide 12.5 mg She just had labs done, report is not available at this time Medical History: - Hypertension, currently managed with l osartan hydrochlorothiazide. - Diabetes Mellitus, diet-controlled Social History: - The patient engaged in meal preparatio n and household activities during a gathering. Problem List - Hematoma on the leg - Hypertension - Diabetes Mellitus - keloid small back Patient Instructions - Take the newly prescribed losartan 50 hydrochlorothiazide 12.5 as a whole pill instead of cutting it. - Continue monitoring blood sugar levels . - Perform a blood test the day before e next appointment. - Apply hydrocodone cream on the keloid if it becomes itchy. - Follow-up with the rescheduled gynecol ogist appointment in September for a Pap smear. Review of Systems - General: No fever no chills - Neurological: No headaches no dizziness - Ear nose throat: No sore throat no hearing difficulty no ear pain - Cardiovascular: No syncope, no chest pain, no palpitations - Gastrointestinal: No nausea vomiting or diarrhea - Endocrine: No polyuria polydipsia no heat intolerance - Genitourinary: No dysuria , no blood in urine Physical Exam General: No acute distress HEENT: No acute findings Neck: Supple Respiratory system: Able to talk in full sentences, no audible wheeze Cardiovascular: S1-S2 regular in rate and rhythm Gastrointestinal: No pain Extremities: Small hematoma under the skin, bruise and lump noted on the body [employer] [place] [employer]: Alert awake oriented x3 motor sensory intact Skin: Normal turgor, small keloid noted on the back [facility] Medical History History of rectal injury Diabetes HTN (hypertension) Surgical History Hx of colonoscopy Hx of cardiac catheterization Family History Mother Hypertension Father No problems noted. Social History Housing: House Alcohol intake: never Patient Tobacco Use Status: Never used Tobacco e-Cigarette/Vaping Use: Never Used Second Hand Smoke Exposure: No Current occupational status: employed Cognitive needs: No Hearing needs: No Vision needs: Yes Questionnaire PHQ-9 Over the last 2 weeks, how often have you been bothered by any of the following problems? 1. Little interest or pleasure in doing things: not at all 2. Feeling down, depressed, or hopeless: not at all 3. Trouble falling or staying asleep, or sleeping too much: not at all 4. Feeling tired or having little energy: more than half the days 5. Poor appetite or overeating: not at all 6. Feeling bad about yourself - or that you are a failure or have let yourself or your family down: not at all 7. Trouble concentrating on things, such as reading the newspaper or watching television: not at all 8. Moving or speaking so slowly that other people could have noticed. Or the opposite - being so fidgety or restless that you have been moving around a lot more than usual: not at all 9. Thoughts that you would be better off or of hurting yourself in some way: not at all Total score: 2 Depression Screening Interpretation: Negative Depression Screening Done: Yes [id number] - PHQ-9 Billing: Yes Source: Developed by Drs. Silvio Schneider, Carmel Delgadillo, Andrea Neal and colleagues, with an educational lynda from [employer]. Thrive Questionnaire Date Thrive assessed: 09/10/24 I am a: Patient What is your living situation today?: I have a steady place to live Within the past 12 months, did the food you bought not last and you didn't have the money to get more?: Never true Within the past 12 months, did you worry whether your food would run out before you got money to buy more?: Never true Do you have trouble paying for medicines?: No Do you have trouble getting transportation to medical appointments?: No Do you have trouble paying your heating and electricity bill?: Yes Do you have trouble taking care of your child, family member or friend?: No Do you have trouble with day-to-day activities such as bathing, preparing meals, shopping, managing finances, etc.?: Yes Are you currently unemployed and looking for a job?: Yes Are you interested in more education?: Yes Please select the resources that you would like help with: Job search/training Currently or been in a relationship where the following occur: No concerns reported THRIVE Score: 1 AUDIT C Alcohol Use Questionnaire (AUDIT-C) 1. How often do you have a drink containing alcohol?: Never 3. How often do you have six or more drinks on one occasion?: Never Total Score: 0 Score Reviewed/Action Taken: Yes NORBERTO-7 AMB Questionnaire NORBERTO-7 Date NORBERTO - 7 assessed: 06/13/25 Feeling nervous, anxious, or on edge: 0 = Not at all Not being able to stop or control worryin = Not at all Worrying too much about different things: 0 = Not at all Trouble relaxin = Several days Being so restless that it is hard to sit still: 0 = Not at all Becoming easily annoyed or irritable: 0 = Not at all Feeling afraid as if something awful might happen: 0 = Not at all Total NORBERTO-7 score (0-4 normal; 5-9 mild; 10-14 moderate; 15-21 severe): 1 Source: Developed by Drs. Silvio Schneider, Carmel Delgdaillo, Andrea Neal and colleagues, with an educational lynda from [employer]. NORBERTO-7 Assessment Billing NORBERTO-7 Assessment Tool: NORBERTO-7 Assessment 99117 Physical exam (Primary Care) Vital Signs: Last Vital Signs Pulse 78 09/10/24 15:26 Resp 17 09/10/24 15:26 BP 132/78 09/10/24 15:26 Pulse Ox 99 09/10/24 15:26 Oxygen Delivery Method Room Air 09/10/24 15:26 BMI result Body Mass Index 24.6 Tobacco/Smoking Status: Tobacco use Status Tobacco use date assessed 09/10/24 09/10/24 15:29 Patient Tobacco Use Status Never used Tobacco 09/10/24 15:29 e-Cigarette/Vaping Use Never Used 09/10/24 15:29 PHQ-9: PHQ-9 Score PHQ-9: Total score 2 09/10/24 15:29 Depression Screening Interpretation: Negative Thrive Assessment: Date of Thrive Assessment Date Thrive assessed 09/10/24 09/10/24 15:29 Currently or been in a relationship where the following occur: No concerns reported Coding Level of Care Code Est Pt Level 3 (77909) Diagnoses Diet-controlled diabetes mellitus E11.9 Essential hypertension I10 Traumatic hematoma of abdominal wall, initial encounter S30.1XXA Encounter type: initial encounter Keloid of skin L91.0 Additional Codes NORBERTO-7 Assessment Billing - NORBERTO-7 Assessment Tool: NORBERTO-7 Assessment 23334 ([id number]) PHQ-9 - 69208 - PHQ-9 Billing: Yes ([id number]) Assessment & Plan Assessment & Plan (1) Diet-controlled diabetes mellitus: Code(s): E11.9 - Type 2 diabetes mellitus without complications Category: Medical (2) Essential hypertension: Code(s): I10 - Essential (primary) hypertension Category: Medical (3) Traumatic hematoma of abdominal wall: Code(s): S30.1XXA - Contusion of abdominal wall, initial encounter Category: Medical Qualifiers: Encounter type: initial encounter Qualified Code(s): S30.1XXA - Contusion of abdominal wall, initial encounter (4) Keloid of skin: Code(s): L91.0 - Hypertrophic scar Category: Medical Plan History - The patient is a 58-year-old female came in for her regular follow-up appointment presenting with a hematoma on left abdominal wall - The hematoma developed after the patient accidentally hit the edge of a kitchen table while cooking for a gathering, which occurred last Friday. - The patient reported the presence of a substantial bruise and a palpable lump at the site of injury. - Additionally, the patient experienced a transient increase in blood glucose levels, noting readings of 109-112 mg/dL after a cold last week, which is higher than her usual range of 84-96 mg/dL. - The patient is not currently taking glipizide, despite previously considering it for her diabetes management. Blood pressure is stable with losartan 50-hydrochlorothiazide 12.5 mg She just had labs done, report is not available at this time Medical History: - Hypertension, currently managed with losartan hydrochlorothiazide. - Diabetes Mellitus, diet-controlled Social History: - The patient engaged in meal preparation and household activities during a gathering. Problem List - Hematoma on the leg - Hypertension - Diabetes Mellitus - keloid small back Patient Instructions - Take the newly prescribed losartan 50 hydrochlorothiazide 12.5 as a whole pill instead of cutting it. - Continue monitoring blood sugar levels. - Perform a blood test the day before the next appointment. - Apply hydrocodone cream on the keloid if it becomes itchy. 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 Orders: Orders Complete Blood Count Auto Diff 6 Months E11.9 - Type 2 diabetes mellitus without complications, I10 - Essential (primary) hypertension, L91.0 - Hypertrophic scar, S30.1XXA - Contusion of abdominal wall, initial encounter Comprehensive [place]. Panel Fast 6 Months E11.9 - Type 2 diabetes mellitus without complications, I10 - Essential (primary) hypertension, L91.0 - Hypertrophic scar, S30.1XXA - Contusion of abdominal wall, initial encounter Hemoglobin A1c 6 Months E11.9 - Type 2 diabetes mellitus without complications, I10 - Essential (primary) hypertension, L91.0 - Hypertrophic scar, S30.1XXA - Contusion of abdominal wall, initial encounter Medications: New losartan-hydrochlorothiazide 50-12.5 mg 1 tab PO DAILY 90 tabs 1RF
== END 2024-09-10 15:47 | disposition home or self-care (01) ==
LOC: HO.HMCC 15:23
PROVIDERS: PCP Internal Medicine; Visit Provider Internal Medicine
DX: E11.9 Type 2 diabetes mellitus without complications (principal); I10 Essential (primary) hypertension; S30.1XXA Contusion of abdominal wall, initial encounter; L91.0 Hypertrophic scar

== ENCOUNTER 2024-11-02 13:42 | Outpatient (AMB) | payer OTHER, SELFPAY ==
[2024-11-02 13:50] VITALS: BP 160/80; PULSE 76; O2SAT 98; BMI 26.0
--- NOTE | 2024-11-02 13:50 | A.OFFPC_ITS ---
Vital Signs 11/02/24 13:50 Height 5 ft 2 in Weight 142 lb BMI 26.0 BP 160/80 H Blood Pressure Location Lt brachial Position Sitting Pulse 76 Pulse Source Pulse Oximeter Pulse Oximetry (%) 98 Intake Visit Reasons: dunia brady, paperwork Allergies codeine Allergy (Intermediate, Verified 09/10/24 15:27) hives Influenza Virus Vaccines Allergy (Intermediate, Verified 09/10/24 15:27) Gastrointestinal Upset ether Adverse Reaction (Verified 09/10/24 15:27) Confusion Medication List - Last Reconciled 11/02/24 by Andreea Jackson MD Alcohol Prep Pads (alcohol swabs) 1 pad topical BID NS FreeStyle Lancets (lancets) Check blood sugar twice daily as directed NS FreeStyle Lite Meter (blood-glucose meter) Check blood sugar twice daily as directed NS FreeStyle Lite Strips (blood sugar diagnostic) Check blood sugar twice daily as directed NS glipizide 5 mg PO DAILY losartan-hydrochlorothiazide 50-12.5 mg 1 tab PO DAILY Tobacco use date assessed: 09/10/24 Dental Screening Dental Screen Date: 09/10/24 HPI re jose antonio, paperwork HPI Details History - The patient is a 58-year-old female pr esenting with difficulty typing due to an injury to the right hand incurred on October 12 while trimming bushes, resulting in a deep laceration to the third and second distal fingers. - The patient sought emergency treatment on the same day at the emergency room, where stitches were administered. - Two weeks following the incident, the wound was almost healed but still exhibited diminished sensation and weakness, primarily impacting certain daily activities such as typing. - The patient refrained from activities involving water exposure to facilitate healing and was homebound for two weeks. - The patient reported returning to full -time work as of October 25. - The patient stated a prior A1c level o f 5.8 and expressed interest in knowing the current A1c values. she was off Glipizide at that time and continue to be off Medical History: - Type 2 Diabetes Mellitus, previously m anaged with glipizide, which was discon tinued when A1c improved to 6.2 without medication. - Hypertension, currently managed with l osartan. Social History: - The patient is employed full-time and recently returned to work after a brief period of convalescence. - The patient mentioned handling tasks a t home, such as assisting with gardening activities. - The patient has insurance coverage, in cluding [employer] and emergency coverage, fo r which forms need to be completed. Medications - Losartan Hydrochlorothiazide for the m anagement of hypertension. - Previously on glipizide for diabetes, now discontinued. Problem List - Hypertension - Type 2 Diabetes Mellitus - Right hand finger injury with resultan t numbness and weakness Diagnostic results - Labs: Prior A1c was 5.8 as per patient inquiry - Labs: Potassium level at 3.2 to 3.3, s lightly below normal. [facility] - Emergency room treatment previously re ceived for initial injury management. Patients instructions - Maintain safety precautions to protect the injured hand. - Continue monitoring blood pressure at home. - Be cautious about signs of high blood pressure. if it is running above 140 systolic , go back to 100 mg losartan as before - Complete and submit any necessary insu romain forms. filled today - Keep a copy of important documents rel ated to medical treatment and coverage. Review of Systems General: No fever no chills neurological: No headaches no dizziness ear nose throat: No sore throat no hearing difficulty no ear pain cardiovascular: No syncope, no chest pain, no palpitations gastrointestinal: No nausea vomiting or diarrhea endocrine: No polyuria polydipsia no heat intolerance genitourinary: No dysuria skin: No new complaints Physical Exam general: No acute distress HEENT: No acute findings neck: Supple respiratory system: Able to talk in full sentences, no audible wheeze no stridor cardiovascular: S1-S2 RRR, blood pressure 160 gastrointestinal: No pain extremities: Right hand, third and second finger with deep cut, almost healed, decreased sensation 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 Social History Housing: House Alcohol intake: never Patient Tobacco Use Status: Never used Tobacco e-Cigarette/Vaping Use: Never Used Second Hand Smoke Exposure: No Current occupational status: employed Cognitive needs: No Hearing needs: No Vision needs: Yes Questionnaire Thrive Questionnaire Date Thrive assessed: 09/10/24 I am a: Patient What is your living situation today?: I have a steady place to live Within the past 12 months, did the food you bought not last and you didn't have the money to get more?: Never true Within the past 12 months, did you worry whether your food would run out before you got money to buy more?: Never true Do you have trouble paying for medicines?: No Do you have trouble getting transportation to medical appointments?: No Do you have trouble paying your heating and electricity bill?: Yes Do you have trouble taking care of your child, family member or friend?: No Do you have trouble with day-to-day activities such as bathing, preparing meals, shopping, managing finances, etc.?: Yes Are you currently unemployed and looking for a job?: Yes Are you interested in more education?: Yes Please select the resources that you would like help with: Job search/training Currently or been in a relationship where the following occur: No concerns reported THRIVE Score: 1 NORBERTO-7 AMB Questionnaire NORBERTO-7 Date NORBERTO - 7 assessed: 09/10/24 Source: Developed by Drs. Silvio Schneider, Carmel Delgadillo, Andrea Neal and colleagues, with an educational lynda from [employer]. Physical exam (Primary Care) Vital Signs: Last Vital Signs Pulse 76 11/02/24 13:50 BP 160/80 H 11/02/24 13:50 Pulse Ox 98 11/02/24 13:50 BMI result Body Mass Index 26.0 Tobacco/Smoking Status: Tobacco use Status Tobacco use date assessed 09/10/24 11/02/24 13:52 Patient Tobacco Use Status Never used Tobacco 11/02/24 13:52 e-Cigarette/Vaping Use Never Used 11/02/24 13:52 Thrive Assessment: Date of Thrive Assessment Date Thrive assessed 09/10/24 11/02/24 13:52 Currently or been in a relationship where the following occur: No concerns reported Coding Level of Care Code Est Pt Level 4 (12521) Diagnoses Injury of finger of right hand, sequela S69.91XS Encounter type: sequela Disability affecting daily living R53.81 Essential hypertension I10 Diet-controlled diabetes mellitus E11.9 Assessment & Plan Assessment & Plan (1) Injury of finger of right hand: Code(s): S69.91XA - Unspecified injury of right wrist, hand and finger(s), initial encounter Category: Medical Qualifiers: Encounter type: sequela Qualified Code(s): S69.91XS - Unspecified injury of right wrist, hand and finger(s), sequela (2) Disability affecting daily living: Code(s): R53.81 - Other malaise Category: Medical (3) Essential hypertension: Code(s): I10 - Essential (primary) hypertension Category: Medical (4) Diet-controlled diabetes mellitus: Code(s): E11.9 - Type 2 diabetes mellitus without complications Category: Medical Plan History - The patient is a 58-year-old female presenting with difficulty typing due to an injury to the right hand incurred on October 12 while trimming bushes, resulting in a deep laceration to the third and second distal fingers. - The patient sought emergency treatment on the same day at the emergency room, where stitches were administered. - Two weeks following the incident, the wound was almost healed but still exhibited diminished sensation and weakness, primarily impacting certain daily activities such as typing. - The patient refrained from activities involving water exposure to facilitate healing and was homebound for two weeks. - The patient reported returning to full-time work as of October 25. - The patient stated a prior A1c level of 5.8 and expressed interest in knowing the current A1c values. she was off Glipizide at that time and continue to be off Medical History: - Type 2 Diabetes Mellitus, previously managed with glipizide, which was discontinued when A1c improved to 6.2 without medication. - Hypertension, currently managed with losartan. Social History: - The patient is employed full-time and recently returned to work after a brief period of convalescence. - The patient mentioned handling tasks at home, such as assisting with gardening activities. - The patient has insurance coverage, including [employer] and emergency coverage, for which forms need to be completed. Medications - Losartan Hydrochlorothiazide for the management of hypertension. - Previously on glipizide for diabetes, now discontinued. Problem List - Hypertension - Type 2 Diabetes Mellitus - Right hand finger injury with resultant numbness and weakness Diagnostic results - Labs: Prior A1c was 5.8 as per patient inquiry - Labs: Potassium level at 3.2 to 3.3, slightly below normal. [facility] - Emergency room treatment previously received for initial injury management. Patients instructions - Maintain safety precautions to protect the injured hand. - Continue monitoring blood pressure at home. - Be cautious about signs of high blood pressure. if it is running above 140 systolic , go back to 100 mg losartan as before - Complete and submit any necessary insurance forms. filled today - Keep a copy of important documents related to medical treatment and coverage.
== END 2024-11-02 14:08 | disposition home or self-care (01) ==
PROVIDERS: PCP Internal Medicine; Visit Provider Internal Medicine
DX: S69.91XS Unspecified injury of right wrist, hand and finger(s), sequela (principal); R53.81 Other malaise; I10 Essential (primary) hypertension; E11.9 Type 2 diabetes mellitus without complications